=== PATIENT | female | born 1935 | race Caucasian/White ===

== ENCOUNTER 2017-08-20 22:18 | Inpatient (IN) | payer MEDICARE ==
[2017-08-20] MEDS ORDERED: Pantoprazole 40 MG Vial IVPUSH ONE (23:11)
[2017-08-20] MEDS ORDERED: Sodium Chloride 0.9% 10 ML Syringe FLUSH PRN ×2 (23:11→23:46)
[2017-08-20] MEDS ORDERED: Ondansetron 4 MG/2 ML SDV IVPUSH ONE (23:11)
[2017-08-20] MEDS ORDERED: Lactated Ringers 1,000 ML IV SCH (23:15)
--- NOTE | 2017-08-20 23:16 | EDM.PDOC ---
ED HPI GENERAL MEDICAL PROBLEM - General Chief Complaint: Gastrointestinal Problem Stated Complaint: HEARTBURN,NAUSEA Time Seen by Provider: 08/20/17 22:21 Source of Information: Reports: Patient, Family, RN Notes Reviewed History Limitations: Reports: No Limitations - History of Present Illness INITIAL COMMENTS - FREE TEXT/NARRATIVE: 82-year-old female presents emergency department day complaint of dark black emesis, she states it started about 2 hours prior she has had this one time in the past has had an EGD no she has gastroesophageal reflux disease as well as a hiatal hernia she does feel weak but has not passed out does feel nauseated and does describe some substernal chest pain as well epigastric Pain Score (Numeric/FACES): 5 - Related Data Allergies Allergy/AdvReac Type Severity Reaction Status Date / Time No Known Allergies Allergy Verified 08/20/17 22:44 Home Meds: Home Meds ALPRAZolam [Xanax] 1 mg PO BID PRN 09/09/14 [History] Acetaminophen [Tylenol Extra Strength] 500 mg PO Q6HR PRN 09/09/14 [History] Albuterol Sulfate [Proair Hfa] 2 puff INH Q4HR PRN 09/09/14 [History] Budesonide/Formoterol [Symbicort 160-4.5 Mcg Inhaler] 2 puff INH BID 09/09/14 [ History] Calcium Carbonate [Calcium] 500 mg PO DAILY 09/09/14 [History] Calcium Carbonate/Vitamin D3 [Ra Calcium 600-Vit D3 400 Tab] 1 tab PO DAILY 09/12 [History] Fish Oil/Borage/Flax/Om3,6,9#1 [[place] 3-6-9 Complex Softgel] 1 cap PO DAILY 09/12 [History] Hydrochlorothiazide 25 mg PO DAILY 09/09/14 [History] Lisinopril [Zestril] 40 mg PO DAILY 09/09/14 [History] Multivitamin with Minerals [Multiple Vitamin] 1 tab PO DAILY 09/09/14 [History] Omeprazole [Prilosec] 20 mg PO BIDAC 09/09/14 [History] Simvastatin [Zocor] 20 mg PO BEDTIME 09/09/14 [History] traZODone 25 mg PO BEDTIME PRN 09/09/14 [History] Past Medical History HEENT History: Reports: Impaired Vision Cardiovascular History: Reports: Hypertension Respiratory History: Reports: COPD Gastrointestinal History: Reports: GERD, Hiatal Hernia 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: Musculoskeletal History: Reports: Fracture, Other (See Below) Other Musculoskeletal History: Right arm fracture Psychiatric History: Reports: Anxiety - Infectious Disease History Infectious Disease History: Reports: Chicken Pox, Measles, Mumps, Rubella Social & Family History - Tobacco Use Smoking Status *Q: Current Every Day Smoker Years of Tobacco use: 65 Packs/Tins Daily: 0.2 Second Hand Smoke Exposure: No - Caffeine Use Caffeine Use: Reports: Coffee - Alcohol Use Days Per Week of Alcohol Use: 0 - Recreational Drug Use Recreational Drug Use: No ED ROS GENERAL - Review of Systems Review Of Systems: See Below Constitutional: Reports: No Symptoms HEENT: Reports: No Symptoms Respiratory: Reports: No Symptoms Cardiovascular: Reports: No Symptoms GI/Abdominal: Reports: Nausea, Vomiting (Black colored) Musculoskeletal: Reports: No Symptoms Skin: Reports: No Symptoms ED EXAM, GI/ABD - Physical Exam Exam: See Below Text/Narrative:: General: Female, not in any distress, alert and oriented x3 HEENT: head is atraumatic normocephalic, eyes pupils equal round reactive to light, sclera clear no conjunctivitis appreciated. Ears blocked by cerumen bilaterally canals are clear. Nose no septal deviation, nares are clear, no blood present. Mouth mucosa is moist and pink no erythema or exudate noted in soft palate, tongue is midline uvula is midline, dentures in place. Neck: Supple no thyromegaly no tracheal deviation. Nodes: Cervical nodes subclavicular nodes nontender no palpable lymphadenopathy noted. Lungs: clear to auscultation bilaterally with symmetrical respirations, no adventitious noise appreciated. CV: Regular rate and rhythm S1 and S2 appreciated no murmurs rubs or gallops noted. Abdomen: Soft, nontender, no palpable masses or organomegaly appreciated, no distention no guarding bowel sounds are present, Neuro: Cranial nerves II through XII grossly intact Skin: Warm and dry, intact Extremities: No lower extremity edema appreciated, Course - Vital Signs Last Recorded V/S: Last Vital Signs Temp 96.4 F 08/20/17 22:38 Pulse 115 H 08/20/17 22:38 Resp 16 08/20/17 22:38 BP 136/84 08/20/17 22:38 Pulse Ox 95 08/20/17 22:38 - Orders/Labs/Meds Orders: Active Orders 24 hr Category Date Time Status Patient Status [ADT] Routine ADT 08/21/17 00:13 Active Bedrest Bedside Commode [RC] ASDIRECTED Care 08/21/17 00:13 Active Cardiac Monitoring [RC] .As Directed Care 08/21/17 00:15 Active Fecal Occult Blood Collection [RC] ASDIRECTED Care 08/21/17 00:25 Active Height and Weight [RC] DAILY Care 08/21/17 00:13 Active Intake and Output [RC] QSHIFT Care 08/21/17 00:15 Active Notify Provider Consults [RC] ASDIRECTED Care 08/21/17 00:20 Active Oxygen Therapy [RC] PRN Care 08/21/17 00:13 Active Peripheral IV Care [RC] . DIRECTED Care 08/20/17 23:12 Active Peripheral IV Care [RC] . DIRECTED Care 08/20/17 23:47 Active Pulse Oximetry [RC] CONTINUOUS Care 08/21/17 00:15 Active RT Aerosol Therapy [RC] ASDIRECTED Care 08/21/17 00:20 Active VTE/DVT Education [RC] Per Unit Routine Care 08/21/17 00:13 Active Vital Signs [RC] Q4H Care 08/21/17 00:13 Active Consult to Physician [CONS] Routine Cons 08/21/17 00:13 Ordered OT Evaluation and Treatment [CONS] Routine Cons 08/21/17 00:13 Active PT Evaluation and Treatment [CONS] Routine Cons 08/21/17 00:13 Active Nothing per Oral Now Diet [DIET] Diet 08/21/17 Breakfast Active COMPREHENSIVE METABOLIC PN,CMP [CHEM] AM Lab 08/21/17 05:11 Ordered HELICOBACTER PYLORI AG, STOOL [REF] Routine Lab 08/21/17 00:25 Ordered HEMOGLOBIN/HEMATOCRIT,HH [HEME] Routine Lab 08/21/17 06:00 Ordered MAGNESIUM [CHEM] AM Lab 08/21/17 05:11 Ordered RED BLOOD CELLS LP [BBK] Stat Lab 08/20/17 23:53 Ordered TYPE AND SCREEN [BBK] Stat Lab 08/20/17 23:53 Ordered Acetaminophen [Tylenol] Med 08/21/17 00:13 Ordered 650 mg RECTAL Q4H PRN Albuterol [Proventil Neb Soln] Med 08/21/17 00:13 Ordered 2.5 mg NEB Q4H PRN Albuterol/Ipratropium [DuoNeb 3.0-0.5 MG/3 ML] Med 08/21/17 00:13 Ordered 3 ml NEB QID PRN Docusate Sodium/Sennosides [Senna Plus] Med 08/21/17 00:13 Ordered 1 tab PO BID PRN Lactated Ringers [Ringers, Lactated] 1,000 ml Med 08/20/17 23:15 Active IV ASDIRECTED Morphine Med 08/21/17 00:13 Ordered 2 mg IVPUSH Q2H PRN Nicotine [Habitrol] Med 08/21/17 09:00 Ordered 14 mg TRDERM DAILY Promethazine [Phenergan] 12.5 mg Med 08/21/17 00:13 Ordered Sodium Chloride 0.9% [Normal Saline] 50 ml IV Q6H Sodium Chloride 0.9% [Normal Saline] 100 ml Med 08/21/17 00:30 Ordered Pantoprazole [ProTONIX IV] 80 mg IV 10 mls/hr Sodium Chloride 0.9% [Saline Flush] Med 08/20/17 23:11 Active 10 ml FLUSH ASDIRECTED PRN Sodium Chloride 0.9% [Saline Flush] Med 08/20/17 23:46 Active 10 ml FLUSH ASDIRECTED PRN ED Antiemetic Medication Reflex [OM.PC] Click to Edit Oth 08/20/17 23:11 Ordered Peripheral IV Insertion Adult [OM.PC] Urgent Oth 08/20/17 23:11 Ordered Peripheral IV Insertion Adult [OM.PC] Urgent Oth 08/20/17 23:47 Ordered Resuscitation Status Routine Resus Stat 08/21/17 00:13 Ordered Medication Orders Acetaminophen (Tylenol) 650 mg RECTAL Q4H PRN PRN Reason: Mild pain/fever Albuterol (Proventil Neb Soln) 2.5 mg NEB Q4H PRN PRN Reason: Shortness Of Breath/wheezing Albuterol/Ipratropium (Duoneb 3.0-0.5 Mg/3 Ml) 3 ml NEB QID PRN PRN Reason: Shortness Of Breath/wheezing Lactated Ringer's (Ringers, Lactated) 1,000 mls @ 500 mls/hr IV ASDIRECTED PHUONG Last Admin: 08/20/17 23:51 Dose: 500 mls/hr Promethazine HCl 12.5 mg/ (Sodium Chloride) 50.5 mls @ 200 mls/hr IV Q6H PRN PRN Reason: Nausea/Vomiting Pantoprazole Sodium 80 mg/ (Sodium Chloride) 100 mls @ 10 mls/hr IV .Q10H PHUONG Morphine Sulfate (Morphine) 2 mg IVPUSH Q2H PRN PRN Reason: Pain (severe 7-10) Nicotine (Habitrol) 14 mg TRDERM DAILY PHUONG Senna/Docusate Sodium (Senna Plus) 1 tab PO BID PRN PRN Reason: Constipation Sodium Chloride (Saline Flush) 10 ml FLUSH ASDIRECTED PRN PRN Reason: Keep Vein Open Last Admin: 08/20/17 23:38 Dose: 10 ml Sodium Chloride (Saline Flush) 10 ml FLUSH ASDIRECTED PRN PRN Reason: Keep Vein Open Labs: Laboratory Tests 08/20/17 08/20/17 08/20/17 Range/Units 23:25 23:28 23:28 WBC 16.6 H (4.5-11.0) K/uL RBC 5.29 (3.30-5.50) M/uL Hgb 14.4 (12.0-15.0) g/dL Hct 43.4 (36.0-48.0) % MCV 82 (80-98) fL MCH 27 (27-31) pg MCHC 33 (32-36) % Plt Count 391 (150-400) K/uL Neut % (Auto) 87 H (36-66) % Lymph % (Auto) 5 L (24-44) % [place] % (Auto) 8 H (2-6) % Eos % (Auto) 0 L (2-4) % Baso % (Auto) 0 (0-1) % PT 10.5 (9.5-12.0) sec INR 0.98 (0.80-1.20) APTT 24.2 L (27.0-36.0) sec Sodium (140-148) mmol/L Potassium (3.6-5.2) mmol/L Chloride (100-108) mmol/L Carbon Dioxide (21-32) mmol/L Anion Gap (5.0-14.0) mmol/L BUN (7-18) mg/dL Creatinine (0.6-1.0) mg/dL Est Cr Clr Drug Dosing mL/min Estimated GFR (MDRD) (>60) Glucose (74-106) mg/dL Lactic Acid 1.2 (0.4-2.0) mmol/L Calcium (8.5-10.1) mg/dL Total Bilirubin (0.2-1.0) mg/dL AST (15-37) U/L ALT (12-78) U/L Alkaline Phosphatase (46-116) U/L Troponin I (0.000-0.056) ng/mL Total Protein (6.4-8.2) g/dL Albumin (3.4-5.0) g/dL Globulin (2.3-3.5) g/dL Albumin/Globulin Ratio (1.2-2.2) Lipase (73-393) U/L 08/20/ Range/Units 23:28 WBC (4.5-11.0) K/uL RBC (3.30-5.50) M/uL Hgb (12.0-15.0) g/dL Hct (36.0-48.0) % MCV (80-98) fL MCH (27-31) pg MCHC (32-36) % Plt Count (150-400) K/uL Neut % (Auto) (36-66) % Lymph % (Auto) (24-44) % [place] % (Auto) (2-6) % Eos % (Auto) (2-4) % Baso % (Auto) (0-1) % PT (9.5-12.0) sec INR (0.80-1.20) APTT (27.0-36.0) sec Sodium 139 L (140-148) mmol/L Potassium 3.7 (3.6-5.2) mmol/L Chloride 102 (100-108) mmol/L Carbon Dioxide 30 (21-32) mmol/L Anion Gap 10.7 (5.0-14.0) mmol/L BUN 35 H (7-18) mg/dL Creatinine 0.8 (0.6-1.0) mg/dL Est Cr Clr Drug Dosing 39.49 mL/min Estimated GFR (MDRD) > 60 (>60) Glucose 150 H (74-106) mg/dL Lactic Acid (0.4-2.0) mmol/L Calcium 11.1 H (8.5-10.1) mg/dL Total Bilirubin 0.3 (0.2-1.0) mg/dL AST 21 (15-37) U/L ALT 25 (12-78) U/L Alkaline Phosphatase 83 (46-116) U/L Troponin I < 0.017 (0.000-0.056) ng/mL Total Protein 7.1 (6.4-8.2) g/dL Albumin 3.8 (3.4-5.0) g/dL Globulin 3.3 (2.3-3.5) g/dL Albumin/Globulin Ratio 1.2 (1.2-2.2) Lipase 185 (73-393) U/L Meds: Medications Generic Name Dose Route Start Last Admin Trade Name Freq PRN Reason Stop Dose Admin Acetaminophen 650 mg 08/21/17 00:13 Tylenol RECTAL Q4H PRN Mild pain/fever Albuterol 2.5 mg 08/21/17 00:13 Proventil Neb Soln NEB Q4H PRN Shortness Of Breath/wheezing Albuterol/Ipratropium 3 ml 08/21/17 00:13 Duoneb 3.0-0.5 Mg/3 Ml NEB QID PRN Shortness Of Breath/wheezing Lactated Ringer's 1,000 mls @ 500 mls/hr 08/20/17 23:15 08/20/17 23:51 Ringers, Lactated IV 500 mls/hr ASDIRECTED PHUONG Administration Promethazine HCl 12.5 mg/ 50.5 mls @ 200 mls/hr 08/21/17 00:13 Sodium Chloride IV Q6H PRN Nausea/Vomiting Pantoprazole Sodium 80 mg/ 100 mls @ 10 mls/hr 08/21/17 00:30 Sodium Chloride IV .Q10H PHUONG Morphine Sulfate 2 mg 08/21/17 00:13 Morphine IVPUSH Q2H PRN Pain (severe 7-10) Nicotine 14 mg 08/21/17 09:00 Habitrol TRDERM DAILY PHUONG Senna/Docusate Sodium 1 tab 08/21/17 00:13 Senna Plus PO BID PRN Constipation Sodium Chloride 10 ml 08/20/17 23:11 08/20/17 23:38 Saline Flush FLUSH 10 ml ASDIRECTED PRN Administration Keep Vein Open Sodium Chloride 10 ml 08/20/17 23:46 Saline Flush FLUSH ASDIRECTED PRN Keep Vein Open Discontinued Medications Generic Name Dose Route Start Last Admin Trade Name Freq PRN Reason Stop Dose Admin Ondansetron HCl 4 mg 08/20/17 23:11 08/20/17 23:38 Zofran IVPUSH 08/20/17 23:12 4 mg ONETIME ONE Administration Pantoprazole Sodium 40 mg 08/20/17 23:11 08/20/17 23:38 Protonix Iv IVPUSH 08/20/17 23:12 40 mg ONETIME ONE Administration Departure - Departure Time of Disposition: 00:32 Disposition: Admitted As Inpatient 67 Condition: Good Clinical Impression: Hematemesis Qualifiers: Nausea presence: without nausea Qualified Code(s): K92.0 - Hematemesis - Discharge Information Referrals: Cris Jasmine PA [Primary Care Provider] - Forms: ED Department Discharge - My Orders Last 24 Hours: My Active Orders 08/20/17 23:11 Sodium Chloride 0.9% [Saline Flush] 10 ml FLUSH ASDIRECTED PRN ED Antiemetic Medication Reflex [OM.PC] Click to Edit Peripheral IV Insertion Adult [OM.PC] Urgent 08/20/17 23:12 Peripheral IV Care [RC] . DIRECTED 08/20/17 23:15 Lactated Ringers [Ringers, Lactated] 1,000 ml IV ASDIRECTED 08/20/17 23:46 Sodium Chloride 0.9% [Saline Flush] 10 ml FLUSH ASDIRECTED PRN 08/20/17 23:47 Peripheral IV Care [RC] . DIRECTED Peripheral IV Insertion Adult [OM.PC] Urgent 08/20/17 23:53 RED BLOOD CELLS LP [BBK] Stat TYPE AND SCREEN [BBK] Stat - Assessment/Plan Last 24 Hours: My Active Orders 08/20/17 23:11 Sodium Chloride 0.9% [Saline Flush] 10 ml FLUSH ASDIRECTED PRN ED Antiemetic Medication Reflex [OM.PC] Click to Edit Peripheral IV Insertion Adult [OM.PC] Urgent 08/20/17 23:12 Peripheral IV Care [RC] . DIRECTED 08/20/17 23:15 Lactated Ringers [Ringers, Lactated] 1,000 ml IV ASDIRECTED 08/20/17 23:46 Sodium Chloride 0.9% [Saline Flush] 10 ml FLUSH ASDIRECTED PRN 08/20/17 23:47 Peripheral IV Care [RC] . DIRECTED Peripheral IV Insertion Adult [OM.PC] Urgent 08/20/17 23:53 RED BLOOD CELLS LP [BBK] Stat TYPE AND SCREEN [BBK] Stat Plan: Assessment Acuity = acute Site and laterality = hemaemesis complicated patient with known history of chronic obstructive pulmonary disease and gastroesophageal reflux disease as well as hiatal hernia Etiology = unknown etiology Manifestations = none Location of injury = Home Lab values = WBC elevated 16.6 consistent leukocytosis, calcium elevated at 11.1 consistent hypercalcemia Plan called and discussed the case with Dr. Watkins, who agreed to admit the hospital Patient was in agreement with the plan all questions were answered. This note was dictated using [employer] voice recognition software please call with any questions.
--- NOTE | 2017-08-20 23:51 | PCM.HP ---
H&P History of Present Illness - General Date of Service: 08/20/17 Source of Information: Patient History Limitations: Reports: No Limitations - History of Present Illness Initial Comments - Free Text/Narative: 82-year-old female with past medical history of hypertension, hyperlipidemia, COPD, chronic smoker, past history of GI bleed, insomnia, GERD on omeprazole medication, previous history of paraesophageal hiatal hernia came to the ED with the complaining of bloody vomiting. Patient reports that first episode of wanting started around 7 PM and associated with upper abdominal pain. Patient reports that the pain is 2-3/10 in intensity, burning type, no radiation, which did not subside with omeprazole medication. Patient has significant past medical history of GERD and hiatal hernia and declined surgical management during the previous admission in 2013. Patient had last upper endoscopy was 2013. Patient denies any early colonic cancer, stomach cancer history in the family. Patient denies any blood in the stool, nausea, vomiting, disturbance in bowel or bladder habits. Patient last fecal occult blood test in 10/2016 was within normal limit. Patient denies any recent fever, sick contacts. Patient is a chronic smoker and has been on Symbicort and albuterol as needed for COPD. Denies any breathing difficulty, exertional chest pains. Patient blood pressures are reassuring. Patient received a omeprazole IV in the ED and hemoglobin is at baseline. Patient has been on aspirin 81 mg daily. Patient is a full code. Other review of systems are not significant epigastric Pain Score (Numeric/FACES): 5 Throat Pain Score (Numeric/FACES): 3 - Related Data Allergies/Adverse Reactions: Allergies Allergy/AdvReac Type Severity Reaction Status Date / Time No Known Allergies Allergy Verified 08/20/17 22:44 Home Medications: Home Meds ALPRAZolam [Xanax] 1 mg PO BID PRN 09/09/14 [History] Acetaminophen [Tylenol Extra Strength] 500 mg PO Q6HR PRN 09/09/14 [History] Albuterol Sulfate [Proair Hfa] 2 puff INH Q4HR PRN 09/09/14 [History] Budesonide/Formoterol [Symbicort 160-4.5 Mcg Inhaler] 2 puff INH BID 09/09/14 [ History] Calcium Carbonate [Calcium] 500 mg PO DAILY 09/09/14 [History] Calcium Carbonate/Vitamin D3 [Ra Calcium 600-Vit D3 400 Tab] 1 tab PO DAILY 09/12 [History] Fish Oil/Borage/Flax/Om3,6,9#1 [[place] 3-6-9 Complex Softgel] 1 cap PO DAILY 09/12 [History] Hydrochlorothiazide 25 mg PO DAILY 09/09/14 [History] Lisinopril [Zestril] 40 mg PO DAILY 09/09/14 [History] Multivitamin with Minerals [Multiple Vitamin] 1 tab PO DAILY 09/09/14 [History] Omeprazole [Prilosec] 20 mg PO BIDAC 09/09/14 [History] Simvastatin [Zocor] 20 mg PO BEDTIME 09/09/14 [History] traZODone 25 mg PO BEDTIME PRN 09/09/14 [History] Past Medical History HEENT History: Reports: Impaired Vision Cardiovascular History: Reports: Hypertension Respiratory History: Reports: COPD Gastrointestinal History: Reports: GERD, Hiatal Hernia 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: Musculoskeletal History: Reports: Fracture, Other (See Below) Other Musculoskeletal History: Right arm fracture Psychiatric History: Reports: Anxiety - Infectious Disease History Infectious Disease History: Reports: Chicken Pox, Measles, Mumps, Rubella Social & Family History - Tobacco Use Smoking Status *Q: Current Every Day Smoker Years of Tobacco use: 65 Packs/Tins Daily: 0.2 Second Hand Smoke Exposure: No - Caffeine Use Caffeine Use: Reports: Coffee - Alcohol Use Days Per Week of Alcohol Use: 0 - Recreational Drug Use Recreational Drug Use: No H&P Review of Systems - Review of Systems: Review Of Systems: See Below General: Denies: Fever, Chills, Malaise HEENT: Denies: Contact Lenses, Dysphasia, Ear Pain Pulmonary: Denies: Shortness of Breath, Wheezing, Pleuritic Chest Pain Cardiovascular: Denies: Chest Pain, Palpitations, Dyspnea on Exertion, Orthopnea , Edema, Lightheadedness, Syncope, Claudication Gastrointestinal: Reports: Abdominal Pain, Anorexia, Hematemesis. Denies: Black Stool, Bloody Stool, Constipation, Diarrhea, Decreased Appetite, Difficulty Swallowing, Distension, Flatus, Hematochezia, Melena, Nausea, Stool Incontinence, Vomiting Genitourinary: Denies: Dysuria, Frequency Musculoskeletal: Denies: Neck Pain, Shoulder Pain Skin: Denies: Cyanosis, Jaundice Psychiatric: Denies: Confusion, Depression, Mood Lability Neurological: Denies: Confusion, Dizziness Hematologic/Lymphatic: Denies: Anemia, Easy Bleeding Exam - Exam Exam: See Below - Vital Signs Vital Signs: Last Vital Signs Temp 35.8 C 08/20/17 22:38 Pulse 115 H 08/20/17 22:38 Resp 16 08/20/17 22:38 BP 136/84 08/20/17 22:38 Pulse Ox 95 08/20/17 22:38 Weight: 45.359 kg - Exam General: Alert, Oriented HEENT: PERRLA, Conjunctiva Clear Neck: Supple, Trachea Midline Lungs: Clear to Auscultation, Normal Respiratory Effort. No: Decreased Breath Sounds Cardiovascular: Regular Rate, Regular Rhythm, Normal S1, Normal S2. No: Irregular Rhythm GI/Abdominal Exam: Normal Bowel Sounds, Soft, Tender. No: Non-Tender, No Organomegaly, No Distention, No Mass, Distended, Guarding, Rigid, Rebound, Abnormal Bowel Sounds Extremities: Normal Inspection, Normal Range of Motion, Non-Tender, No Pedal Edema, Normal Capillary Refill, Pedal Edema Skin: Warm, Dry, Intact Neuro Extensive - Mental Status: Alert, Oriented x3, Normal Mood/Affect - Patient Data Lab Results Last 24 hrs: Laboratory Results - last 24 hr 08/20/17 08/20/17 Range/Units 23:28 23:28 WBC 16.6 H (4.5-11.0) K/uL RBC 5.29 (3.30-5.50) M/uL Hgb 14.4 (12.0-15.0) g/dL Hct 43.4 (36.0-48.0) % MCV 82 (80-98) fL MCH 27 (27-31) pg MCHC 33 (32-36) % Plt Count 391 (150-400) K/uL Neut % (Auto) 87 H (36-66) % Lymph % (Auto) 5 L (24-44) % [place] % (Auto) 8 H (2-6) % Eos % (Auto) 0 L (2-4) % Baso % (Auto) 0 (0-1) % PT 10.5 (9.5-12.0) sec INR 0.98 (0.80-1.20) APTT 24.2 L (27.0-36.0) sec Result Diagrams: 08/21/17 05:30 08/21/17 05:30 Vern Results Last 24 hrs: Microbiology 08/20/17 23:05 Gastric Occult Blood - Final Gastric Fluid *Q Meaningful Use (ADM) - VTE *Q VTE Criteria *Q: - Stroke *Q Stroke Criteria *Q: - AMI *Q AMI Criteria *Q: - Problem List (1) Paraesophageal hernia SNOMED Code(s): 4935119 ICD Code: K44.9 - DIAPHRAGMATIC HERNIA WITHOUT OBSTRUCTION OR GANGRENE Status: Acute Current Visit: Yes (2) Hyperlipemia SNOMED Code(s): 33205482 ICD Code: E78.5 - HYPERLIPIDEMIA, UNSPECIFIED Status: Acute Current Visit : Yes (3) Insomnia SNOMED Code(s): 189437483 ICD Code: G47.00 - INSOMNIA, UNSPECIFIED Status: Acute Current Visit: Yes (4) Hematemesis SNOMED Code(s): 3223388 ICD Code: K92.0 - HEMATEMESIS Status: Acute Current Visit: Yes Qualifiers: Nausea presence: without nausea Qualified Code(s): K92.0 - Hematemesis (5) COPD (chronic obstructive pulmonary disease) SNOMED Code(s): 65391457 ICD Code: J44.9 - CHRONIC OBSTRUCTIVE PULMONARY DISEASE, UNSPECIFIED Status : Chronic Current Visit: No (6) Esophageal reflux disease SNOMED Code(s): 868195109 ICD Code: K21.9 - GASTRO-ESOPHAGEAL REFLUX DISEASE WITHOUT ESOPHAGITIS Status: Chronic Current Visit: No (7) Essential hypertension SNOMED Code(s): 61590211 ICD Code: I10 - ESSENTIAL (PRIMARY) HYPERTENSION Status: Chronic Current Visit: No (8) Underweight SNOMED Code(s): 559263319 ICD Code: R63.6 - UNDERWEIGHT Status: Chronic Current Visit: No Problem List Initiated/Reviewed/Updated: Yes Orders Last 24hrs: Active Orders 24 hr Category Date Time Status Peripheral IV Care [RC] . DIRECTED Care 08/20/17 23:12 Active Peripheral IV Care [RC] . DIRECTED Care 08/20/17 23:47 Active COMPREHENSIVE METABOLIC PN,CMP [CHEM] Urgent Lab 08/20/17 23:28 Received LACTIC ACID [CHEM] Urgent Lab 08/20/17 23:11 Ordered LIPASE [CHEM] Urgent Lab 08/20/17 23:28 Received TROPONIN I [CHEM] Urgent Lab 08/20/17 23:28 Received Lactated Ringers [Ringers, Lactated] 1,000 ml Med 08/20/17 23:15 Active IV ASDIRECTED Sodium Chloride 0.9% [Saline Flush] Med 08/20/17 23:11 Active 10 ml FLUSH ASDIRECTED PRN Sodium Chloride 0.9% [Saline Flush] Med 08/20/17 23:46 Active 10 ml FLUSH ASDIRECTED PRN ED Antiemetic Medication Reflex [OM.PC] Click to Edit Oth 08/20/17 23:11 Ordered Peripheral IV Insertion Adult [OM.PC] Urgent Oth 08/20/17 23:11 Ordered Peripheral IV Insertion Adult [OM.PC] Urgent Oth 08/20/17 23:47 Ordered Medication Orders Lactated Ringer's (Ringers, Lactated) 1,000 mls @ 500 mls/hr IV ASDIRECTED PHUONG Last Admin: 08/20/17 23:51 Dose: 500 mls/hr Sodium Chloride (Saline Flush) 10 ml FLUSH ASDIRECTED PRN PRN Reason: Keep Vein Open Last Admin: 08/20/17 23:38 Dose: 10 ml Sodium Chloride (Saline Flush) 10 ml FLUSH ASDIRECTED PRN PRN Reason: Keep Vein Open Assessment/Plan Comment:: 82-year-old female with past medical history of recent visual anemia, GERD, hypertension, hyperlipidemia, COPD, chronic insomnia, chronic smoker came to the ED with the complaining of hematemesis and admitted into the hospital for further management (1) Paraesophageal hernia (4) Hematemesis (6) Esophageal reflux disease (8) Underweight Patient has charted brown hematemesis multiple episodes since evening occult blood test is positive hemoglobin is at baseline Patient has this history of para esophageal hernia Patient last her CT abdomen pelvis along with chest for unintentional weight loss in 04/2016 was at baseline with emphysematous changes. No malignancy findings are noted We'll start her on pantoprazole drip Will get type and crossmatch and packed RBC as needed Will get H. pylori stool test Will consult surgery for possible upper endoscopy and possible colonoscopy We'll follow recommendations CBC, CMP tomorrow Vital signs stable (7) Essential hypertension (2) Hyperlipemia (3) Insomnia We'll continue home medications (5) COPD (chronic obstructive pulmonary disease) Start her on duoneb 4 times daily scheduled and albuterol as needed At baseline Will continue home medications DVT prophylaxis Pass boots GI prophylaxis pantoprazole drip IV fluids normal saline Code status full code Diet nothing by mouth for now
[2017-08-21] MEDS ORDERED: Albuterol 0.083% 2.5 MG/3 ML Neb Soln NEB PRN (00:13)
[2017-08-21] MEDS ORDERED: Morphine 2 MG/ML Syringe IVPUSH PRN (00:13)
[2017-08-21] MEDS ORDERED: Promethazine 12.5 MG in Sodium Chloride 0.9% 50 ML IV PRN (00:13)
[2017-08-21] MEDS ORDERED: Albuterol/Ipratropium 3.0-0.5 MG/3 ML Neb Soln NEB PRN (00:13)
[2017-08-21] MEDS ORDERED: Acetaminophen 650 MG Supp RECTAL PRN (00:13)
[2017-08-21] MEDS ORDERED: Sodium Chloride 0.9% 100 ML with Pantoprazole 80 MG IV SCH ×2 (00:30)
[2017-08-21] MEDS ORDERED: Pantoprazole 80 MG in Sodium Chloride 0.9% 100 ML IV SCH ×2 (00:45→12:30)
[2017-08-21] MEDS: Sodium Chloride 0.9% 1,000 ML IV SCH ×2 (01:13→17:21)
[2017-08-21] MEDS ORDERED: fentaNYL 100 MCG/2 ML SDV ONE (07:52)
[2017-08-21] MEDS ORDERED: Propofol 200 MG/20 ML SDV ONE (07:52)
--- NOTE | 2017-08-21 08:01 | PCM.CONS ---
H&P History of Present Illness - General Date of Service: 08/21/17 Admit Problem/Dx: Admission Diagnosis/Problem Admission Diagnosis/Problem Hematemesis Source of Information: Patient History Limitations: Reports: No Limitations - History of Present Illness Initial Comments - Free Text/Narative: Heena states she has a Hiatal Hernia and the pain and heartburn will flare up occasionally. Last night she had a sudden onset of mid epigastric abdominal pain and coffee ground emesis. Duration of Symptoms: Reports: Day(s): (one) Location: Reports: Abdomen, Other (mid epigastric area) Quality: Reports: Dull, Pressure, Throbbing Severity: Mild Improves with: Reports: Eating, Medication Worsens with: Reports: None Context: Reports: Other (Heena is in no acute dress. ) Associated Symptoms: Reports: Loss of Appetite epigastric Pain Score (Numeric/FACES): 5 - Related Data Allergies/Adverse Reactions: Allergies Allergy/AdvReac Type Severity Reaction Status Date / Time No Known Allergies Allergy Verified 08/20/17 22:44 Home Medications: Home Meds ALPRAZolam [Xanax] 1 mg PO BID PRN 09/09/14 [History] Acetaminophen [Tylenol Extra Strength] 500 mg PO Q6HR PRN 09/09/14 [History] Albuterol Sulfate [Proair Hfa] 2 puff INH Q4HR PRN 09/09/14 [History] Budesonide/Formoterol [Symbicort 160-4.5 Mcg Inhaler] 2 puff INH BID 09/09/14 [ History] Calcium Carbonate [Calcium] 500 mg PO DAILY 09/09/14 [History] Calcium Carbonate/Vitamin D3 [Ra Calcium 600-Vit D3 400 Tab] 1 tab PO DAILY 09/12 [History] Fish Oil/Borage/Flax/Om3,6,9#1 [[place] 3-6-9 Complex Softgel] 1 cap PO DAILY 09/12 [History] Hydrochlorothiazide 25 mg PO DAILY 09/09/14 [History] Lisinopril [Zestril] 40 mg PO DAILY 09/09/14 [History] Multivitamin with Minerals [Multiple Vitamin] 1 tab PO DAILY 09/09/14 [History] Omeprazole [Prilosec] 20 mg PO BIDAC 09/09/14 [History] Simvastatin [Zocor] 20 mg PO BEDTIME 09/09/14 [History] traZODone 25 mg PO BEDTIME PRN 09/09/14 [History] Past Medical History HEENT History: Reports: Impaired Vision Cardiovascular History: Reports: Hypertension Respiratory History: Reports: COPD Gastrointestinal History: Reports: GERD, Hiatal Hernia 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: Musculoskeletal History: Reports: Fracture, Other (See Below) Other Musculoskeletal History: Right arm fracture Psychiatric History: Reports: Anxiety - Infectious Disease History Infectious Disease History: Reports: Chicken Pox, Measles, Mumps, Rubella Social & Family History - Tobacco Use Smoking Status *Q: Current Every Day Smoker Years of Tobacco use: 65 Packs/Tins Daily: 0.2 Second Hand Smoke Exposure: No - Caffeine Use Caffeine Use: Reports: Coffee - Alcohol Use Days Per Week of Alcohol Use: 0 - Recreational Drug Use Recreational Drug Use: No H&P Review of Systems - Review of Systems: Review Of Systems: See Below Free Text/Narrative: Heena is a pleasant 82 year old female who is no acute distress. She is alert and oriented General: Reports: Weakness HEENT: Reports: No Symptoms Pulmonary: Reports: No Symptoms Cardiovascular: Reports: No Symptoms Gastrointestinal: Reports: Abdominal Pain, Decreased Appetite, Hematemesis Genitourinary: Reports: No Symptoms Musculoskeletal: Reports: Muscle Stiffness Skin: Reports: No Symptoms Psychiatric: Reports: No Symptoms Neurological: Reports: No Symptoms Hematologic/Lymphatic: Reports: No Symptoms Immunologic: Reports: No Symptoms Exam - Exam Exam: See Below - Vital Signs Vital Signs: Last Vital Signs Temp 99.3 F 08/21/17 07:51 Pulse 81 08/21/17 07:51 Resp 16 08/21/17 07:51 BP 110/45 L 08/21/17 07:51 Pulse Ox 96 08/21/17 07:51 Weight: 100 lb - Exam Quality Assessment: DVT Prophylaxis General: Alert, Oriented, Cooperative, Mild Distress HEENT: PERRLA Neck: Supple Lungs: Clear to Auscultation, Normal Respiratory Effort Cardiovascular: Regular Rate, Regular Rhythm GI/Abdominal Exam: Tender (in mid epigastric area) (Female) Exam: Deferred Rectal (Female) Exam: Deferred Back Exam: Normal Inspection, Full Range of Motion Extremities: Normal Inspection, No Pedal Edema Skin: Warm, Dry, Intact Neurological: Cranial Nerves Intact, Reflexes Equal Bilateral Neuro Extensive - Mental Status: Alert, Oriented x3, Normal Mood/Affect, Normal Cognition Neuro Extensive - Motor, Sensory, Reflexes: CN II-XII Intact Psychiatric: Alert, Normal Affect, Normal Mood - Patient Data Lab Results Last 24 hrs: Laboratory Results - last 24 hr 08/21/17 08/21/17 Range/Units 05:30 05:30 Hgb 11.3 L D (12.0-15.0) g/dL Hct 35.4 L (36.0-48.0) % Sodium 141 (140-148) mmol/L Potassium 4.1 (3.6-5.2) mmol/L Chloride 107 (100-108) mmol/L Carbon Dioxide 29 (21-32) mmol/L Anion Gap 5.2 (5.0-14.0) mmol/L BUN 40 H (7-18) mg/dL Creatinine 0.8 (0.6-1.0) mg/dL Est Cr Clr Drug Dosing 39.49 mL/min Estimated GFR (MDRD) > 60 (>60) Glucose 109 H (74-106) mg/dL Calcium 8.8 D (8.5-10.1) mg/dL Magnesium 1.6 L (1.8-2.4) mg/dL Total Bilirubin 0.3 (0.2-1.0) mg/dL AST 16 (15-37) U/L ALT 18 (12-78) U/L Alkaline Phosphatase 61 (46-116) U/L Total Protein 5.5 L (6.4-8.2) g/dL Albumin 2.8 L (3.4-5.0) g/dL Globulin 2.7 (2.3-3.5) g/dL Albumin/Globulin Ratio 1.0 L (1.2-2.2) Result Diagrams: 08/21/17 05:30 08/21/17 05:30 Consult PN Assessment/Plan Procedures: Procedures CONTRST X-RAY UPPR GI TRACT (09/12/14) CT ABD & PELV W/CONTRAST (05/17/16) CT THORAX W/DYE (05/17/16) EGD BIOPSY SINGLE/MULTIPLE (09/10/14) TTE W/DOPPLER COMPLETE (11/23/15) (1) Hematemesis SNOMED Code(s): 9552217 Code(s): K92.0 - HEMATEMESIS Current Visit: Yes Qualifiers: Nausea presence: without nausea Qualified Code(s): K92.0 - Hematemesis (2) COPD (chronic obstructive pulmonary disease) SNOMED Code(s): 57449076 Code(s): J44.9 - CHRONIC OBSTRUCTIVE PULMONARY DISEASE, UNSPECIFIED Current Visit: No (3) Aortic calcification SNOMED Code(s): 350509301 Code(s): I70.0 - ATHEROSCLEROSIS OF AORTA Current Visit: No (4) Essential hypertension SNOMED Code(s): 46788329 Code(s): I10 - ESSENTIAL (PRIMARY) HYPERTENSION Current Visit: No (5) Underweight SNOMED Code(s): 261456179 Code(s): R63.6 - UNDERWEIGHT Current Visit: No (6) Esophageal reflux disease SNOMED Code(s): 355804471 Code(s): K21.9 - GASTRO-ESOPHAGEAL REFLUX DISEASE WITHOUT ESOPHAGITIS Current Visit: No Problem List Initiated/Reviewed/Updated: Yes My Orders Last 24 Hours: My Active Orders 08/21/17 07:10 Verify Patient Consent Obtain [RC] ASDIRECTED Plan: Plan: EGD with possible biopsies - IV Sedation - Case to follow - 08/21/17 No Wesleyinul Orders to be written post EDG Jeannette Fields 08/21/17
[2017-08-21] MEDS ORDERED: Lactated Ringers 1,000 ML ONE (10:03)
[2017-08-21] MEDS: Nicotine 14 MG/24 Hr Patch TRDERM SCH (10:16)
--- NOTE | 2017-08-21 11:28 | PCM.PN ---
- General Info Date of Service: 08/21/17 Functional Status: Reports: Pain Controlled - Review of Systems General: Denies: Fever Gastrointestinal: Reports: Other (no hematemesis ). Denies: Melena Systems Review Comment:: No acute events overnight. No recurrence of her hematemesis. EGD this morning was difficult because of a very large hiatal hernia. Hemoglobin has dropped some since admission but she has not had melena or hematochezia. No significant pain this morning. No fevers. - Patient Data Vitals - Most Recent: Last Vital Signs Temp 36.8 C 08/21/17 11:26 Pulse 72 08/21/17 11:26 Resp 16 08/21/17 10:55 BP 123/58 L 08/21/17 11:26 Pulse Ox 94 L 08/21/17 10:55 Weight - Most Recent: 45.359 kg I&O - Last 24 Hours: Intake & Output 08/20/17 08/21/17 08/21/17 22:59 06:59 14:59 Intake Total 486 Output Total 320 100 Balance 166 -100 Lab Results Last 24 Hours: Laboratory Results - last 24 hr 08/21/17 08/21/17 Range/Units 05:30 05:30 Hgb 11.3 L D (12.0-15.0) g/dL Hct 35.4 L (36.0-48.0) % Sodium 141 (140-148) mmol/L Potassium 4.1 (3.6-5.2) mmol/L Chloride 107 (100-108) mmol/L Carbon Dioxide 29 (21-32) mmol/L Anion Gap 5.2 (5.0-14.0) mmol/L BUN 40 H (7-18) mg/dL Creatinine 0.8 (0.6-1.0) mg/dL Est Cr Clr Drug Dosing 39.49 mL/min Estimated GFR (MDRD) > 60 (>60) Glucose 109 H (74-106) mg/dL Calcium 8.8 D (8.5-10.1) mg/dL Magnesium 1.6 L (1.8-2.4) mg/dL Total Bilirubin 0.3 (0.2-1.0) mg/dL AST 16 (15-37) U/L ALT 18 (12-78) U/L Alkaline Phosphatase 61 (46-116) U/L Total Protein 5.5 L (6.4-8.2) g/dL Albumin 2.8 L (3.4-5.0) g/dL Globulin 2.7 (2.3-3.5) g/dL Albumin/Globulin Ratio 1.0 L (1.2-2.2) Med Orders - Current: Current Medications Acetaminophen (Tylenol) 650 mg RECTAL Q4H PRN PRN Reason: Mild pain/fever Albuterol (Proventil Neb Soln) 2.5 mg NEB Q4H PRN PRN Reason: Shortness Of Breath/wheezing Albuterol/Ipratropium (Duoneb 3.0-0.5 Mg/3 Ml) 3 ml NEB QID PRN PRN Reason: Shortness Of Breath/wheezing Promethazine HCl 12.5 mg/ (Sodium Chloride) 50.5 mls @ 200 mls/hr IV Q6H PRN PRN Reason: Nausea/Vomiting Last Admin: 08/21/17 01:32 Dose: 200 mls/hr Sodium Chloride (Normal Saline) 1,000 mls @ 100 mls/hr IV ASDIRECTED [facility] Last Admin: 08/21/17 01:13 Dose: 100 mls/hr Morphine Sulfate (Morphine) 2 mg IVPUSH Q2H PRN PRN Reason: Pain (severe 7-10) Last Admin: 08/21/17 03:04 Dose: 2 mg Nicotine (Habitrol) 14 mg TRDERM DAILY [facility] Last Admin: 08/21/17 10:16 Dose: Not Given Senna/Docusate Sodium (Senna Plus) 1 tab PO BID PRN PRN Reason: Constipation Sodium Chloride (Saline Flush) 10 ml FLUSH ASDIRECTED PRN PRN Reason: Keep Vein Open Last Admin: 08/20/17 23:38 Dose: 10 ml Discontinued Medications Fentanyl (Sublimaze) Confirm Administered Dose 100 mcg .ROUTE .STK-MED ONE Stop: 08/21/17 07:53 Lactated Ringer's (Ringers, Lactated) 1,000 mls @ 500 mls/hr IV ASDIRECTED [facility] Last Admin: 08/20/17 23:51 Dose: 500 mls/hr Pantoprazole Sodium 80 mg/ (Sodium Chloride) 100 mls @ 10 mls/hr IV .Q10H [facility] Last Admin: 08/21/17 04:00 Dose: Not Given Pantoprazole Sodium 80 mg/ (Sodium Chloride) 100 mls @ 10 mls/hr IV ASDIRECTED [facility] Stop: 08/21/17 11:00 Last Admin: 08/21/17 02:59 Dose: 10 mls/hr Pantoprazole Sodium 80 mg/ (Sodium Chloride) 100 mls @ 10 mls/hr IV Q10H [facility] Lactated Ringer's (Ringers, Lactated) Confirm Administered Dose 1,000 mls @ as directed .ROUTE .STK-MED ONE Stop: 08/21/17 10:04 Ondansetron HCl (Zofran) 4 mg IVPUSH ONETIME ONE Stop: 08/20/17 23:12 Last Admin: 08/20/17 23:38 Dose: 4 mg Pantoprazole Sodium (Protonix Iv) 40 mg IVPUSH ONETIME ONE Stop: 08/20/17 23:12 Last Admin: 08/20/17 23:38 Dose: 40 mg Propofol (Diprivan 20 Ml) Confirm Administered Dose 200 mg .ROUTE .STK-MED ONE Stop: 08/21/17 07:53 - Exam Quality Assessment: No: Supplemental Oxygen General: Alert, Oriented, Cooperative, No Acute Distress Neck: Supple Lungs: Normal Respiratory Effort, Wheezing (rare end exp wheezing) Cardiovascular: Regular Rate, Regular Rhythm GI/Abdominal Exam: Soft, No Distention Extremities: No Pedal Edema Skin: Warm, Dry Psy/Mental Status: Alert, Normal Affect - Problem List Review Problem List Initiated/Reviewed/Updated: Yes - My Orders Last 24 Hours: My Active Orders 08/21/17 10:56 Up With Assistance [RC] ASDIRECTED 08/21/17 11:30 Pantoprazole [ProTONIX IV] 40 mg IVPUSH Q12H 08/21/17 17:00 HGB [HEMOGLOBIN] [HEME] Routine 08/22/17 05:00 BASIC METABOLIC PANEL,BMP [CHEM] Timed CBC W/O DIFF,HEMOGRAM [HEME] Timed (1) - Plan Plan:: ASSESSMENT AND PLAN EPIGASTRIC PAIN WITH HEMATEMESIS - EGD revealed large hiatal hernia which was known but no obvious pathology noted though the procedure was difficult because of the hernia. Upper GI study planned for tomorrow. Patient has been hemodynamically stable and has not had recurrence of hematemesis. -Repeat hemoglobin this afternoon -Hemoglobin again in the morning -Twice daily proton pump inhibitor -Upper GI study planned for tomorrow morning COPD - stable with no evidence for exacerbation. -Continue home medications DVT prophylaxis - mechanical GI prophylaxis - PPI Diet - full liquids Disposition - anticipate discharge to home after the hospital stay Epifanio Gutiérrez M.D.
[2017-08-21] MEDS: Pantoprazole 40 MG Vial IVPUSH SCH ×2 (12:06→22:33)
[2017-08-21] MEDS ORDERED: Albuterol 8 GM Inhaler INH PRN (15:22)
[2017-08-21] MEDS: Magnesium Sulfate/Water 2 GM in Premix Bag 1 BAG IV SCH ×2 (17:12→22:33)
[2017-08-21] MEDS: ALPRAZolam 0.5 MG Tab PO SCH (20:22)
[2017-08-21] MEDS: Formoterol/Mometasone 200-5 MCG 8.8 GM Inhaler IH SCH (20:24)
[2017-08-21] MEDS ORDERED: Non-Formulary Medication 1 Each (Budesonide/Formoterol [Symbicort 160-4.5 Mcg] 2 PUFF) INH SCH (21:00)
[2017-08-22] MEDS ORDERED: Iohexol 647 MG/ML 50 ML SDV PO STA (01:38)
[2017-08-22] MEDS: Sodium Chloride 0.9% 1,000 ML IV SCH (03:24)
[2017-08-22] MEDS ORDERED: Acetaminophen 325 MG Tab PO PRN (04:43)
[2017-08-22] MEDS: Formoterol/Mometasone 200-5 MCG 8.8 GM Inhaler IH SCH (07:24)
[2017-08-22] MEDS: ALPRAZolam 0.5 MG Tab PO SCH (08:24)
[2017-08-22] MEDS: Nicotine 14 MG/24 Hr Patch TRDERM SCH (08:27)
--- NOTE | 2017-08-22 08:54 | CR ---
UGI wo KUB HISTORY: eval gastric empying in pt with massive hiatal her FINDINGS: After administration of oral contrast, upright views were obtained. Large esophageal hiatal hernia. At 15 minutes and 30 minutes, the majority of the contrast remains within the stomach. At 3 hours, there remains persistent contrast within the stomach. At 5 hours, contrast is emptied from the stomach, with the majority of the contrast within the colon. Large amount of stool within the colon. Exam otherwise unremarkable. IMPRESSION: Persistent contrast within the hiatal hernia at 3 hours. At 5 hours, the majority of the contrast is within the colon.
--- NOTE | 2017-08-22 09:18 | DISCH ---
ADMISSION DIAGNOSES: Hematemesis, hyperlipidemia, insomnia, chronic obstructive pulmonary disease, aortic calcification, essential hypertension, malnutrition, and esophageal reflux disease. DISCHARGE DIAGNOSIS: Gastroscopy 08/20/2017. PREOPERATIVE DIAGNOSIS: Heartburn, nausea. POSTOPERATIVE DIAGNOSIS: Large diaphragmatic hernia. After preoperative evaluation, discussion of possible risks and possible complications, Heena wished to proceed with gastroscopy. HOSPITAL COURSE: Heena was admitted to the hospital on 08/20/2017 for dark black emesis that started 2 hours prior to coming into the emergency room. She had a known gastroesophageal reflux disease with hiatal hernia, but she has not felt this sick before. She was admitted to the hospital and an EGD was done on 08/21/2017. Her EGD did reveal large diaphragmatic hernia. Dr. Sergo Mueller did discuss with her to have a laparoscopic surgery for repair of the large diaphragmatic hernia. Heena did wish to proceed with surgery. She states she is not able to eat very much and her weight is down to 100 pounds and she has a lot of discomfort. REVIEW OF SYSTEMS: HEENT: Negative. NECK: Negative. CHEST: She does have some chest pain after she eats because of the hernia. Denies any fast or irregular heartbeat. LUNGS: No shortness of breath. ABDOMEN: As above. : Negative. EXTREMITIES: No joint pain or swelling. SKIN: Without rash. NEURO: Denies any headache, dizziness, or loss of coordination. PSYCHIATRIC: Denies any depression, anxiety, or insomnia. Remainder of review of systems negative for any pertinent positives and negatives. OBJECTIVE: GENERAL: Heena Edwards is a pleasant 82-year-old female. She is alert and orientated. VITAL SIGNS: Height is 5 feet 2.99 inches, weight is 100 pounds, BMI is 17.7. TPR 97, 82, 18. Blood pressure 113/57, O2 is 95% on room air. HEENT: Negative. NECK: Supple. HEART: Regular rate and rhythm. LUNGS: Clear. ABDOMEN: Soft, minimally tender in the midepigastric area. : Deferred. EXTREMITIES: Without peripheral edema. Full range of motion. NEURO: Intact. PSYCHIATRIC: Mood and affect appropriate. DISPOSITION: Discharged to home. CONDITION: Stable. FOLLOWUP: To follow up on , 06/24/2017, for a laparoscopic possible open repair of large diaphragmatic hernia under general anesthesia, Sergo Mueller MD. She will be typed and screened and cross-matched for 2 units of packed red blood cells on the morning of surgery. She is to be n.p.o. after midnight. HOME MEDICATIONS: She is to resume her home medication of Xanax 1 mg b.i.d. p.r.n. anxiety, Tylenol 500 mg oral q.6 hours, ProAir inhaler 2 puffs every 4 hours, Symbicort 2 puffs inhaled twice a day, calcium with vitamin D one tablet daily, calcium carbonate 500 mg daily, fish oil 1 capsule daily, hydrochlorothiazide 25 mg oral daily, lisinopril 40 mg oral daily, multivitamin 1 tablet daily, Prilosec 20 mg oral twice daily, Zocor 20 mg oral at bedtime, and trazodone 20 mg at bedtime. DISCHARGE INSTRUCTIONS: Diet after discharge, GI, soft, low-residue diet. Drink 8-10 glasses of water. Activity as tolerated. May drive today. May shower. Notify provider if any increased pain, nausea, or vomiting.
--- NOTE | 2017-08-24 13:26 | OR ---
DATE OF PROCEDURE: 08/21/2017 PREOPERATIVE DIAGNOSIS: Hematemesis with a history of large paraesophageal diaphragmatic hernia. POSTOPERATIVE DIAGNOSES: 1. Gastroesophageal reflux disease associated with ulceration at esophagogastric junction. 2. 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 OPERATIVE PROCEDURE: Upper GI endoscopy with biopsies of gastric antrum for CLOtest. ANESTHESIA: IV sedation. INDICATION FOR PROCEDURE: This is an 82-year-old with a known history of very large diaphragmatic hernia presenting with some hematemesis. Plan is to proceed with upper GI endoscopy with biopsies as indicated. Potential risks including bleeding and perforation were discussed, and the patient wishes to proceed. DETAILS OF PROCEDURE: The patient was taken to the operating room and placed in a left lateral decubitus position. IV sedation was administered, after which the upper GI endoscope was passed orally through the length of the esophagus and into the stomach. The patient was noted to have a very large hiatal hernia. Upon passing the scope into the distal aspect of the stomach and retroflexing the scope, there were noted to be 2 upper components of hiatal hernia confirming that it was the large paraesophageal component to the hiatal hernia. There was marked esophagitis with some old coffee-ground type material coating on the distal esophagus over some ulcerated areas. These were likely the site of her recent bleeding resulting in hematemesis. The scope could be passed into the antrum, but never out of the antrum and into the duodenum. This appeared to be fairly tightly angulated due to the large size of the paraesophageal hernia. The scope was then withdrawn. Biopsies were obtained from the antrum and sent for CLOtest for H. pylori. No bleeding at the biopsy sites was seen. In the past, the patient has been resistant to have surgical correction of this problem. She is however losing fair bit of weight. We will obtain an upper GI x-ray tomorrow morning to try to establish how well the patient's stomach is emptying. If this confirms that she is having poor emptying, we will likely need to discuss surgical correction of this paraesophageal hernia somewhat further. Sergo Mueller MD /[id number]
== END 2017-08-22 11:10 | disposition home or self-care (01) | DRG 392 ==
LOC: JP.ED 22:18 → JP.MS 08-21 00:13
PROVIDERS: ADMIT Family Medicine; ATTEND Internal Medicine
PROC: 0DB68ZX Excision of Stomach, Via Natural or Artificial Opening Endoscopic, Diagnostic (ICD-10-PCS; principal; 2017-08-21)
DX: K21.0 Gastro-esophageal reflux disease with esophagitis (principal); K92.0 Hematemesis; E46 Unspecified protein-calorie malnutrition; Z68.1 Body mass index [BMI] 19.9 or less, adult; R63.6 Underweight; K21.9 Gastro-esophageal reflux disease without esophagitis; K44.9 Diaphragmatic hernia without obstruction or gangrene; R12 Heartburn; R11.0 Nausea; F17.210 Nicotine dependence, cigarettes, uncomplicated; J44.9 Chronic obstructive pulmonary disease, unspecified; I10 Essential (primary) hypertension; G47.00 Insomnia, unspecified; E78.5 Hyperlipidemia, unspecified; F41.9 Anxiety disorder, unspecified; H54.7 Unspecified visual loss
CPT/HCPCS: 36415; 80053; 82271; 83605; 83690; 84484; 85025; 85610; 85730; 96374; 96375; 99285; C9113; J2405; J7050; J7120; 74240; 74240-26; 80048; 83735; 85014; 85018; 85027; 86850; 86900; 86901; 86920; 86922; 87081; 94640-76; A9270-GY; J2270; J2550; J2704; J3010; J3475; J7030; J7040; Q9967

== ENCOUNTER 2017-08-24 07:32 | Inpatient (IN) | payer MEDICARE ==
[2017-08-24] MEDS ORDERED: Acetaminophen 500 MG Tab PO ONE (08:00)
[2017-08-24] MEDS ORDERED: Dextrose 5%-Lactated Ringers 1,000 ML IV SCH (09:00)
[2017-08-24] MEDS ORDERED: cefOXitin 2 GM in Sodium Chloride 0.9% 50 ML IV ONE (09:30)
[2017-08-24] MEDS ORDERED: Succinylcholine 200 MG/10 ML MDV ONE (09:48)
[2017-08-24] MEDS ORDERED: Neostigmine Methylsulfate 1 MG/ML 5 ML Syringe ONE (09:48)
[2017-08-24] MEDS ORDERED: Propofol 200 MG/20 ML SDV ONE (09:48)
[2017-08-24] MEDS ORDERED: Glycopyrrolate 0.2 MG/ML 5 ML MDV ONE (09:48)
[2017-08-24] MEDS ORDERED: Ondansetron 4 MG/2 ML SDV ONE ×2 (09:48→10:17)
[2017-08-24] MEDS ORDERED: Dexamethasone 4 MG/ML SDV ONE (09:48)
[2017-08-24] MEDS ORDERED: Rocuronium 50 MG/5 ML Vial ONE (09:48)
[2017-08-24] MEDS: Albuterol/Ipratropium 3.0-0.5 MG/3 ML Neb Soln NEB ONE ×2 (09:49→14:47)
[2017-08-24] MEDS ORDERED: cefOXitin 2 GM Vial ONE (10:25)
[2017-08-24] MEDS ORDERED: Meropenem 500 MG SDV ONE (11:46)
[2017-08-24] MEDS ORDERED: Lactated Ringers 1,000 ML ONE (12:29)
[2017-08-24] MEDS ORDERED: Naloxone 0.4 MG/ML SDV IVPUSH PRN (13:04)
[2017-08-24] MEDS ORDERED: HYDROmorphone/Normal Saline 15 MG/30 ML PCA IV PRN (13:04)
[2017-08-24] MEDS ORDERED: Naloxone 0.4 MG/ML SDV IV PRN (13:07)
[2017-08-24] MEDS ORDERED: Sugammadex Sodium 200 MG/2 ML VIAL ONE (13:12)
[2017-08-24] MEDS: hydrOXYzine HCl 100 MG/2 ML SDV IM ONE ×2 (13:55→15:11)
[2017-08-24] MEDS ORDERED: Albuterol/Ipratropium 3.0-0.5 MG/3 ML Neb Soln ONE (14:44)
[2017-08-24] MEDS ORDERED: Albuterol/Ipratropium 3.0-0.5 MG/3 ML Neb Soln INH PRN (14:58)
[2017-08-24] MEDS ORDERED: Ondansetron 4 MG/2 ML SDV IVPUSH PRN (15:01)
[2017-08-24] MEDS ORDERED: traZODone 50 MG Tab PO PRN (15:02)
[2017-08-24] MEDS: Albuterol/Ipratropium 3.0-0.5 MG/3 ML Neb Soln INH SCH ×3 (15:14→21:01)
[2017-08-24] MEDS: Pantoprazole 40 MG Vial IV SCH (15:54)
[2017-08-24] MEDS: Metoclopramide 10 MG/2 ML SDV IVPUSH SCH ×2 (15:54→21:04)
[2017-08-24] MEDS: ceFAZolin 1 GM in Premix Bag 1 BAG IV SCH (15:59)
[2017-08-24] MEDS: Formoterol/Mometasone 200-5 MCG 8.8 GM Inhaler IH SCH (21:01)
[2017-08-24] MEDS: ALPRAZolam 0.5 MG Tab PO PRN (21:28)
[2017-08-24] MEDS: Dextrose 5%-Lactated Ringers 1,000 ML IV SCH (22:56)
[2017-08-25] MEDS: ceFAZolin 1 GM in Premix Bag 1 BAG IV SCH ×2 (00:10→08:47)
[2017-08-25] MEDS: Metoclopramide 10 MG/2 ML SDV IVPUSH SCH ×4 (04:07→21:13)
[2017-08-25] MEDS: Albuterol/Ipratropium 3.0-0.5 MG/3 ML Neb Soln INH SCH ×3 (07:06→20:37)
[2017-08-25] MEDS: Formoterol/Mometasone 200-5 MCG 8.8 GM Inhaler IH SCH ×2 (07:06→20:37)
[2017-08-25] MEDS: Dextrose 5%-Lactated Ringers 1,000 ML IV SCH ×2 (07:22→16:09)
[2017-08-25] MEDS ORDERED: Acetaminophen 160 MG Tab,Disintegrating PO PRN (07:49)
[2017-08-25] MEDS ORDERED: ALPRAZolam 0.5 MG Tab PO PRN (07:50)
[2017-08-25] MEDS ORDERED: traZODone 50 MG Tab PO PRN (07:50)
[2017-08-25] MEDS: Aspirin 81 MG Tab.EC PO SCH (08:43)
[2017-08-25] MEDS: Lisinopril 20 MG Tab PO SCH (08:43)
[2017-08-25] MEDS: Hydrochlorothiazide 25 MG Tab PO SCH (08:44)
[2017-08-25] MEDS ORDERED: Non-Formulary Medication 1 Each (Lisinopril [Zestril] 40 MG) PO SCH (09:00)
[2017-08-25] MEDS ORDERED: Non-Formulary Medication 1 Each (Budesonide/Formoterol [Symbicort 160-4.5 Mcg] 2 PUFF) INH SCH (09:00)
--- NOTE | 2017-08-25 09:28 | PN ---
DATE OF SERVICE: 08/25/2017 SUBJECTIVE: Heena is postop day 1. She states her pain is controlled. She has been up ambulating. Vital signs have been stable. REVIEW OF SYSTEMS: Remainder of review of systems negative for any pertinent positives and negatives. OBJECTIVE: GENERAL: Heena is a pleasant 82-year-old female. VITAL SIGNS: TPR is 98.6, 76, 14, blood pressure 108/93. HEENT: Negative. NECK: Supple. HEART: Regular rate and rhythm. LUNGS: Clear. ABDOMEN: Dressings dry and intact. She gastrostomy tube in and put out 150 mL. EXTREMITIES: Without peripheral edema and SCDs are on. ASSESSMENT: Laparoscopic repair of large diaphragmatic hernia. PLAN: 1. Decrease IV to 100 mL per hour. 2. Discontinue [employer] and continuous pulse ox. 3. Hycet 15 mL q.4 hours p.r.n. pain. 4. Tylenol RediTabs 640 mg q.4 hours p.r.n. lesser pain. 5. Full liquid diet. 6. Good pulmonary toilet encouraged. 7. We will evaluate p.r.n. or in a.m. Jeannette Sofia PA-C /[id number]
[2017-08-25] MEDS: ALPRAZolam 0.5 MG Tab PO PRN ×2 (10:37→21:22)
[2017-08-25] MEDS: Pantoprazole 40 MG Vial IV SCH (15:33)
[2017-08-25] MEDS: Simvastatin 20 MG Tab PO SCH (20:36)
[2017-08-25] MEDS: Acetaminophen/HYDROcodone 108-2.5 MG/5 ML Soln 15 ML UD Cup PO PRN (20:37)
[2017-08-26] MEDS: Dextrose 5%-Lactated Ringers 1,000 ML IV SCH (01:57)
[2017-08-26] MEDS: Metoclopramide 10 MG/2 ML SDV IVPUSH SCH ×3 (03:41→15:59)
[2017-08-26] MEDS: Acetaminophen/HYDROcodone 108-2.5 MG/5 ML Soln 15 ML UD Cup PO PRN ×3 (04:59→20:31)
[2017-08-26] MEDS: Albuterol/Ipratropium 3.0-0.5 MG/3 ML Neb Soln INH SCH ×3 (07:13→20:31)
[2017-08-26] MEDS: Formoterol/Mometasone 200-5 MCG 8.8 GM Inhaler IH SCH ×2 (07:13→20:22)
--- NOTE | 2017-08-26 08:42 | PN ---
DATE OF SERVICE: 08/26/2017 SUBJECTIVE: Heena developed some abdominal cramping and pain across the top part of her abdomen. Her gastrostomy tube was unclamped and put to bedside drainage, and she did feel better. Pain has been controlled. Oral intake 1320. Gastrostomy tube did put out 150 mL. REVIEW OF SYSTEMS: Remainder of review of systems negative for any pertinent positives and negatives. OBJECTIVE: GENERAL: Heena is a pleasant 82-year-old female. She is alert and orientated. VITAL SIGNS: TPR is 98.6, 93, 14. Blood pressure 138/61. HEENT: Negative. NECK: Supple. HEART: Regular rate and rhythm. LUNGS: Revealed coarse, wet rhonchi. There is some improvement when she does cough. ABDOMEN: Dressings dry and intact. G-tube to gravity drainage. Abdominal binder has been on. EXTREMITIES: Without peripheral edema. ASSESSMENT: Laparoscopic repair of large diaphragmatic hernia. Date of surgery 08/24/2017. PLAN: 1. Continue DuoNeb q.i.d. and p.r.n. 2. Discontinue Rowell catheter. 3. Saline lock IV. 4. Good pulmonary toilet. 5. Teach gastrostomy tube management to unclamp when she is experiencing any gas bloating or abdominal discomfort. 6. Continue good oral intake. 7. Plan discharge in the a.. Jeannette Sofia PA-C /[id number]
[2017-08-26] MEDS: Hydrochlorothiazide 25 MG Tab PO SCH (09:24)
[2017-08-26] MEDS: Lisinopril 20 MG Tab PO SCH (09:25)
[2017-08-26] MEDS: Aspirin 81 MG Tab.EC PO SCH (09:25)
[2017-08-26] MEDS: ALPRAZolam 0.5 MG Tab PO PRN ×2 (09:29→20:31)
[2017-08-26] MEDS: Pantoprazole 40 MG Tab.CR PO SCH (15:59)
[2017-08-26] MEDS: Simvastatin 20 MG Tab PO SCH (20:22)
[2017-08-27] MEDS: Albuterol/Ipratropium 3.0-0.5 MG/3 ML Neb Soln INH SCH ×3 (07:38→20:24)
[2017-08-27] MEDS: Formoterol/Mometasone 200-5 MCG 8.8 GM Inhaler IH SCH ×2 (07:44→20:24)
[2017-08-27] MEDS ORDERED: Ondansetron 4 MG Tab.DIS PO PRN (08:20)
[2017-08-27] MEDS: ALPRAZolam 0.5 MG Tab PO PRN ×2 (08:56→20:31)
[2017-08-27] MEDS: Hydrochlorothiazide 25 MG Tab PO SCH (08:56)
[2017-08-27] MEDS: Aspirin 81 MG Tab.EC PO SCH (08:57)
[2017-08-27] MEDS: Lisinopril 20 MG Tab PO SCH ×2 (08:57→08:58)
[2017-08-27] MEDS ORDERED: Magnesium Hydroxide 400 MG/5 ML Susp 30 ML Cup PO ONE (09:00)
--- NOTE | 2017-08-27 09:28 | PN ---
DATE OF SERVICE: 08/27/2017 SUBJECTIVE: Heena denies pain except for her back from being in bed. Oral intake 840. Denies any dysphagia. Urine output 1705. Her gastrostomy tube has been clamped and she has not needed to have it unclamped. She has no other concerns or questions. REVIEW OF SYSTEMS: Remainder of review of systems negative for any pertinent positives and negatives. OBJECTIVE: GENERAL: Heena Edwards is a pleasant 82-year-old female. VITAL SIGNS: TPR is 97.4, 97, 16. Blood pressure is 107/41. HEENT: Negative. NECK: Supple. HEART: Regular rate and rhythm. LUNGS: Clear. ABDOMEN: Soft. Incisions look good. Abdominal binders are on. EXTREMITIES: Without peripheral edema. ASSESSMENT: Laparoscopic repair of large diaphragmatic hernia. Date of surgery, 08/24/2017. PLAN: 1. Milk of magnesia 30 mL this morning. 2. Continue full liquid diet. 3. Continue to teach gastrostomy tube management to keep clamped and unclamped with any symptoms of gas, bloating, or abdominal discomfort. 4. Plan discharge in the a.m. after dietary instructions. Jeannette Sofia PA-C /[id number]
[2017-08-27] MEDS: Pantoprazole 40 MG Tab.CR PO SCH (16:50)
[2017-08-27] MEDS: Simvastatin 20 MG Tab PO SCH (20:24)
[2017-08-27] MEDS: Acetaminophen/HYDROcodone 108-2.5 MG/5 ML Soln 15 ML UD Cup PO PRN (20:30)
[2017-08-28] MEDS: Formoterol/Mometasone 200-5 MCG 8.8 GM Inhaler IH SCH (07:12)
[2017-08-28] MEDS: Albuterol/Ipratropium 3.0-0.5 MG/3 ML Neb Soln INH SCH ×2 (07:12→13:57)
[2017-08-28] MEDS ORDERED: Sodium Phosphate,Monobasic/Sodium Phosphate,Dibasic Enema 133 ML Bottle RECTAL ONE (08:00)
--- NOTE | 2017-08-28 09:16 | DISCH ---
ADMISSION DIAGNOSES: Large paraesophageal diaphragmatic hernia, hematemesis, hyperlipidemia, insomnia, chronic obstructive pulmonary disease, aortic calcification, hypertension, underweight due to malnutrition and esophageal reflux disease. DISCHARGE DIAGNOSIS: Laparoscopic repair of large paraesophageal diaphragmatic hernia. Date of surgery 08/24/2017. HISTORY: Heena is a pleasant 82-year-old female who has had a large paraesophageal diaphragmatic hernia. She was hospitalized earlier in the week with hematemesis and had an EGD. After preoperative evaluation and discussion of possible risks and possible complications, she wished to proceed with surgical procedure. HOSPITAL COURSE: Heena had her surgery on 08/24/2017. She had no operative complications. On postop day #1, she was started on clear liquid diet and advanced to full liquid diet. She was changed to oral pain medication. Her activity was good. She was taught how to care for her gastrostomy tube and she did have to have that opened once for an increased amount of pressure gas. Throughout her hospitalization, vital signs remained stable. Oral intake was adequate. Her pain was controlled and she received dietary instruction. She is ready to be discharged to home on 08/28/2017. PHYSICAL EXAMINATION: GENERAL: Heena Edwards is a pleasant 82-year-old female. VITAL SIGNS: Height is 5 feet 2.99 inches. Weight is 103 pounds. TPR is 98.2, 102, 16, blood pressure 128/56. HEENT: Negative. NECK: Supple. HEART: Regular rate and rhythm. LUNGS: Clear. ABDOMEN: Suture is in place. Gastrostomy tube in place. An abdominal binder has been on. EXTREMITIES: Without peripheral edema. DISPOSITION: Discharged to home. CONDITION: Stable and improving. FOLLOWUP: With Jeannette Sofia PA-C, on 09/04/2017 at 10:00 a.m. HOME MEDICATIONS: 1. Tylenol Amilcar Meltaways 640 mg q.4 hours p.r.n. pain. 2. Celebrex 200 mg oral at bedtime #30. 3. Zofran ODT 4 mg, use sublingual q.4 hours p.r.n. nausea. 4. She is to resume her home medication of aspirin low dose 81 mg daily, Symbicort 160/4.5 mcg 2 puffs twice daily, lisinopril 40 mg oral daily, hydrochlorothiazide 25 mg oral daily, Prilosec 20 mg oral twice daily, Zocor 20 mg at bedtime. 5. She is to stop taking her calcium, fish oil, and multivitamin until 1st postop appointment. DIET: After discharge, drink 8-10 glasses of water a day. Full liquid diet for 2 weeks. ACTIVITY: No lifting greater than 10 pounds for 2 weeks. Driving, do not drive for 1 week. May shower. Notify provider if any fever, increased pain, nausea, or vomiting. Wound incision care, keep site clean and dry. Wear abdominal binder for 2 weeks and then as tolerated. Special instruction is to unclamp gastrostomy tube if any increase in gas, bloating or nausea, then may reclamp and use incentive spirometer 10 times every hour while awake for 1 week.
[2017-08-28] MEDS: Lisinopril 20 MG Tab PO SCH (09:46)
[2017-08-28] MEDS: Hydrochlorothiazide 25 MG Tab PO SCH (09:47)
[2017-08-28] MEDS: Aspirin 81 MG Tab.EC PO SCH (09:47)
--- NOTE | 2017-08-28 17:59 | OR ---
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 OPERATIVE PROCEDURE: Diagnostic laparoscopy with: 1. Repair of a large diaphragmatic hernia with partial fundoplication (38930). 2. Placement of tube gastrostomy (73883). ANESTHESIA: General. SHANK PINNER: Jeannette Sofia PA-C INDICATIONS FOR PROCEDURE: This is an 82-year-old with a very large paraesophageal diaphragmatic hernia. Clinically, she has been able to eat but quite limited amounts and appears to have a significant degree of partial gastric outlet obstruction. The plan is to proceed with a diagnostic laparoscopy and repair of the diaphragmatic hernia. We will likely do a partial fundoplication, so as to avoid much in the way of dysphagia and otherwise will be quite an edematous fundus and esophagogastric junction area. I will also place a tube gastrostomy to be able to facilitate fixation of the stomach in an intraabdominal location, as well as potentially providing a venting mechanism, should the patient develop some degree of gastric ileus. Potential risks of the procedure were reviewed with the patient, including bleeding, infection, injury to underlying viscera, possible recurrence of the problem over time, as well as possibility of cardio- pulmonary, septic, or hemorrhagic complications leading to were discussed , and the patient wishes to proceed. DETAILS OF PROCEDURE: The patient was taken to the operating room, placed in a supine position, and general endotracheal anesthesia was induced. A Rowell catheter was inserted, and the abdomen was prepped and draped. At 15 cm of inferior and 5 cm left of xiphoid process, a transverse incision was made and the peritoneal cavity entered under direct vision with an Optiview trocar. The peritoneal cavity was inflated with 15 mmHg pressure with CO2. Laparoscope was reinserted. No underlying trocar incision site injuries were seen. Following this, 4 additional trocars were placed across the upper and mid abdomen, and general exploration is undertaken. As expected, the patient was then noted to have a quite dramatic diaphragmatic hernia with perhaps 6 or 7 cm of stomach being in the abdomen at this point. Otherwise, no specific additional abnormalities were noted. The stomach was then started to be reduced and the peritoneum along the edges of the diaphragmatic defect was divided and then this continued upward posteriorly and superiorly. The peritoneal sac actually overlay the aortic arch, and it was somewhat superior to the aortic arch. This all eventually was taken down with a combination of blunt dissection , some electrocautery, as well as staplers for portions of the hernia sac. Once this was all removed, the esophagogastric junction at that point could be mobilized into an intraabdominal location. A posterior crural repair was then accomplished using #1 Ethibond sutures with PTFE pledgets. At that point, the diaphragmatic repair appeared to be satisfactory. At this point, the short gastric vessels to the fundus were taken down with Harmonic scalpel. This resulted in a nicely mobile fundus. This was retrieved through a retroesophageal window and fixed on the right side of the distal esophagus to the adjacent diaphragm, creating a roughly 200 or 220 cm wrap. This primarily was displacing the esophagus somewhat anteriorly, creating some angulation at that level. A tiny wrap was not felt to be safe, given the amount of edema that is present, and a more complete wrap would likely result in quite severe dysphagia. At this point, the tube gastrostomy was then constructed through the mid left subcostal trocar site, an 18-Welsh Rowell catheter was placed. On the mid greater curvature, a pursestring stitch of #0 Ethibond stitch was then placed, and an opening was then made in the stomach. The gastrostomy tube was then inserted into the gastric lumen and inflated with 10 mL of saline and the pursestring stitch then pulled up snugly. This stitch was then held on and sutured up to the abdominal wall as the stomach and gastrostomy site were pulled up to the abdominal wall. Three additional sutures of 3-0 Vicryl stitch between the stomach and the overlying abdominal wall were then likewise placed, and the tube itself was sutured at the skin level with a #2 nylon stitch. At this point, no further problems were noted. The trocars were sequentially removed. The patient had a very thin muscle layer, so each of the 12 mm trocars were closed at the fascial level with 0 Vicryl stitch, and the skin of each incision with 6-0 Vicryl skin stitch. One drain has been placed in the left lateral trocar site and sutured to the skin with some 4-0 Vicryl stitch as well. The patient was taken to the recovery room in satisfactory condition. Physician assistant superintendent, Jeannette Sofia, played an essential role in assisting in this case, helping to position the patient, retract structures as needed, as well as suturing and cutting sutures when indicated. Her presence improved patient safety and decreased operative time. Sergo Mueller MD /[id number] MTDD
== END 2017-08-28 13:00 | disposition home or self-care (01) | DRG 327 ==
LOC: JP.SDS 07:32 → JP.SDSSCHI 08:00 → JP.ICU 13:30 → EDSTATUS 14:30 → JP.2SS 08-26 17:17
PROVIDERS: ADMIT Surgery; ATTEND Surgery
PROC: 0BQT4ZZ Repair Diaphragm, Percutaneous Endoscopic Approach (ICD-10-PCS; principal; 2017-08-24)
PROC: 0DV44ZZ Restriction of Esophagogastric Junction, Percutaneous Endoscopic Approach (ICD-10-PCS; 2017-08-24)
PROC: 0DH64UZ Insertion of Feeding Device into Stomach, Percutaneous Endoscopic Approach (ICD-10-PCS; 2017-08-24)
DX: K44.9 Diaphragmatic hernia without obstruction or gangrene (principal); E46 Unspecified protein-calorie malnutrition; Z68.1 Body mass index [BMI] 19.9 or less, adult; F17.210 Nicotine dependence, cigarettes, uncomplicated; I10 Essential (primary) hypertension; J44.9 Chronic obstructive pulmonary disease, unspecified; K21.9 Gastro-esophageal reflux disease without esophagitis; F41.9 Anxiety disorder, unspecified; H54.7 Unspecified visual loss; E78.5 Hyperlipidemia, unspecified; Z79.82 Long term (current) use of aspirin; G47.00 Insomnia, unspecified; I70.0 Atherosclerosis of aorta
CPT/HCPCS: 36415; 86850; 86900; 86901; 86920; 86922; 88302; 94640; 94640-76; A9270-GY; C9113; J0330; J0690; J0694; J1100; J1170; J2185; J2405; J2704; J2710; J2765; J3010; J3410; J7040; J7042; J7050; J7120; J7620

== ENCOUNTER 2020-06-06 02:28 | Inpatient (IN) | payer MEDICARE ==
[2020-06-06] MEDS ORDERED: Sodium Chloride 0.9% 10 ML Syringe FLUSH PRN ×2 (02:45→05:26)
[2020-06-06] MEDS ORDERED: Pantoprazole 40 MG Vial IVPUSH ONE ×2 (02:45→04:57)
[2020-06-06] MEDS ORDERED: Sodium Chloride 0.9% 1,000 ML IV SCH ×2 (02:45→04:15)
[2020-06-06] MEDS ORDERED: Octreotide 100 MCG/ML SDV IVPUSH ONE (02:48)
[2020-06-06] MEDS ORDERED: Ondansetron 4 MG/2 ML SDV IVPUSH ONE (02:50)
--- NOTE | 2020-06-06 02:53 | EDM.PDOC ---
ED HPI GENERAL MEDICAL PROBLEM - General Chief Complaint: Abdominal Pain Stated Complaint: [facility] Time Seen by Provider: 06/06/20 02:39 Source of Information: Reports: Patient, EMS, RN Notes Reviewed History Limitations: Reports: No Limitations - History of Present Illness INITIAL COMMENTS - FREE TEXT/NARRATIVE: 85-year-old female presents emergency department today with complaint of bright red emesis and maroon-colored stools both started last night about 7:00, she states she had this 1 time before with her hiatal hernia about 4 years ago, states that she is never had a colonoscopy, states she feels generally weak but no lightheadedness has not felt like passing out - Related Data Allergies Allergy/AdvReac Type Severity Reaction Status Date / Time No Known Allergies Allergy Verified 06/06/20 02:36 Home Meds: Home Meds ALPRAZolam [Xanax] 1 mg PO BID PRN 09/09/14 [History] Acetaminophen [Tylenol Extra Strength] 500 mg PO Q6HR PRN 09/09/14 [History] Budesonide/Formoterol [Symbicort 160-4.5 MCG] 2 puff INH BID 09/09/14 [History] Lisinopril [Zestril] 20 mg PO DAILY 09/09/14 [History] Omeprazole [Prilosec] 40 mg PO DAILY 09/09/14 [History] Simvastatin [Zocor] 20 mg PO BEDTIME 09/09/14 [History] traZODone 25 mg PO BEDTIME PRN 09/09/14 [History] Aspirin [Adult Low Dose Aspirin EC] 81 mg PO DAILY 08/23/17 [History] Albuterol Sulfate [Albuterol Sulfate Hfa] 2 puff INH Q4H PRN 06/06/20 [History] Calcium Carbonate [Calcium] 500 mg PO DAILY 06/06/20 [History] Calcium Carbonate/Vitamin D3 [Calcium 600 + D3 Softgel] 1 each PO BID 06/06/20 [History] Citalopram [Citalopram HBr] 10 mg PO DAILY 06/06/20 [History] Multivitamin [Multivitamins] 1 tab PO DAILY 06/06/20 [History] [place]-3/DHA/Epa/Fish Oil [[place] 3 500 Softgel] 2 cap PO DAILY 06/06/20 [History] Past Medical History HEENT History: Reports: Impaired Vision Cardiovascular History: Reports: Hypertension Respiratory History: Reports: COPD Gastrointestinal History: Reports: GERD, Hiatal Hernia Genitourinary History: Reports: UTI, Recurrent IT SUPPORT ANALYST History: Reports: Musculoskeletal History: Reports: Fracture, Other (See Below) Other Musculoskeletal History: Right arm fracture Psychiatric History: Reports: Anxiety Hematologic History: Reports: Blood Transfusion(s) Immunologic History: Reports: None Oncologic (Cancer) History: Reports: None Dermatologic History: Reports: None - Infectious Disease History Infectious Disease History: Reports: Chicken Pox, Measles, Mumps - Past Surgical History Head Surgeries/Procedures: Reports: None HEENT Surgical History: Reports: None Cardiovascular Surgical History: Reports: None Respiratory Surgical History: Reports: None GI Surgical History: Reports: Hernia Repair/Other Female Surgical History: Reports: D&C Endocrine Surgical History: Reports: None Neurological Surgical History: Reports: None Musculoskeletal Surgical History: Reports: Other (See Below) Other Musculoskeletal Surgeries/Procedures:: RIGHT ARM SURGERY Oncologic Surgical History: Reports: None Dermatological Surgical History: Reports: None Social & Family History - Family History Family Medical History: Noncontributory - Tobacco Use Smoking Status *Q: Current Every Day Smoker Years of Tobacco use: 70 Packs/Tins Daily: 0.2 - Caffeine Use Caffeine Use: Reports: None - Recreational Drug Use Recreational Drug Use: No ED ROS GENERAL - Review of Systems Review Of Systems: See Below Constitutional: Reports: Weakness HEENT: Reports: No Symptoms Respiratory: Reports: No Symptoms Cardiovascular: Reports: No Symptoms GI/Abdominal: Reports: Hematemesis, Melena. Denies: Abdominal Pain : Reports: No Symptoms Musculoskeletal: Reports: No Symptoms Skin: Reports: No Symptoms Neurological: Reports: No Symptoms ED EXAM, GI/ABD - Physical Exam Exam: See Below Exam Limited By: No Limitations General Appearance: Alert, Mild Distress Respiratory/Chest: No Respiratory Distress, Lungs Clear, Normal Breath Sounds, No Accessory Muscle Use, Chest Non-Tender Cardiovascular: Regular Rate, Rhythm, No Murmur GI/Abdominal Exam: Soft, Non-Tender Extremities: Normal Inspection Course - Vital Signs Last Recorded V/S: Last Vital Signs Temp 97.1 F 06/06/20 02:34 Pulse 67 06/06/20 02:34 Resp 16 06/06/20 02:34 BP 136/65 06/06/20 02:34 Pulse Ox 98 06/06/20 02:34 - Orders/Labs/Meds Orders: Active Orders 24 hr Category Date Time Status Head of Bed Elevation [RC] ASDIRECTED Care 06/06/20 02:45 Active Intake and Output [RC] ASDIRECTED Care 06/06/20 02:45 Active Peripheral IV Care [RC] . DIRECTED Care 06/06/20 02:46 Active Nothing per Oral Now Diet [DIET] Diet 06/06/20 Breakfast Active Octreotide [SandoSTATIN] 500 mcg Med 06/06/20 03:00 Active Sodium Chloride 0.9% [Normal Saline] 497.5 ml IV Q10H Sodium Chloride 0.9% [Normal Saline] 1,000 ml Med 06/06/20 02:45 Active IV ASDIRECTED Sodium Chloride 0.9% [Saline Flush] Med 06/06/20 02:45 Active 10 ml FLUSH ASDIRECTED PRN Peripheral IV Insertion Adult [OM.PC] Urgent Oth 06/06/20 02:45 Ordered Medication Orders Sodium Chloride (Normal Saline) 1,000 mls @ 999 mls/hr IV ASDIRECTED PHUONG Last Admin: 06/06/20 03:03 Dose: 999 mls/hr Documented by: MEGHA Octreotide Acetate 500 mcg/ (Sodium Chloride) 500 mls @ 50 mls/hr IV Q10H PHUONG Last Admin: 06/06/20 03:00 Dose: 50 mcg/hr, 50 mls/hr Documented by: MEGHA Sodium Chloride (Saline Flush) 10 ml FLUSH ASDIRECTED PRN PRN Reason: Keep Vein Open Labs: Laboratory Tests 06/06/20 06/06/20 06/06/20 Range/Units 02:30 02:30 02:30 WBC 16.7 H (4.5-11.0) K/uL RBC 4.61 (3.30-5.50) M/uL Hgb 12.6 D (12.0-15.0) g/dL Hct 38.9 (36.0-48.0) % MCV 84 (80-98) fL MCH 27 (27-31) pg MCHC 32 (32-36) % Plt Count 263 (150-400) K/uL Neut % (Auto) 86 H (36-66) % Lymph % (Auto) 3 L (24-44) % Bremer % (Auto) 11 H (2-6) % Eos % (Auto) 0 L (2-4) % Baso % (Auto) 0 (0-1) % PT 10.8 (9.5-12.0) sec INR 0.99 (0.80-1.20) APTT 24.7 L (27.0-36.0) sec Sodium 140 (140-148) mmol/L Potassium 3.5 L (3.6-5.2) mmol/L Chloride 106 (100-108) mmol/L Carbon Dioxide 25 (21-32) mmol/L Anion Gap 12.5 (5.0-14.0) mmol/L BUN 25 H (7-18) mg/dL Creatinine 0.9 (0.6-1.0) mg/dL Est Cr Clr Drug Dosing 31.32 mL/min Estimated GFR (MDRD) 60 (>60) Glucose 177 H (74-106) mg/dL Calcium 9.0 (8.5-10.1) mg/dL Total Bilirubin 0.5 D (0.2-1.0) mg/dL AST 20 (15-37) U/L ALT 18 (12-78) U/L Alkaline Phosphatase 75 (46-116) U/L Total Protein 6.2 L (6.4-8.2) g/dL Albumin 3.4 (3.4-5.0) g/dL Globulin 2.8 (2.3-3.5) g/dL Albumin/Globulin Ratio 1.2 (1.2-2.2) Blood Type Gel Antibody Screen 06/06/20 Range/Units 02:30 WBC (4.5-11.0) K/uL RBC (3.30-5.50) M/uL Hgb (12.0-15.0) g/dL Hct (36.0-48.0) % MCV (80-98) fL MCH (27-31) pg MCHC (32-36) % Plt Count (150-400) K/uL Neut % (Auto) (36-66) % Lymph % (Auto) (24-44) % Bremer % (Auto) (2-6) % Eos % (Auto) (2-4) % Baso % (Auto) (0-1) % PT (9.5-12.0) sec INR (0.80-1.20) APTT (27.0-36.0) sec Sodium (140-148) mmol/L Potassium (3.6-5.2) mmol/L Chloride (100-108) mmol/L Carbon Dioxide (21-32) mmol/L Anion Gap (5.0-14.0) mmol/L BUN (7-18) mg/dL Creatinine (0.6-1.0) mg/dL Est Cr Clr Drug Dosing mL/min Estimated GFR (MDRD) (>60) Glucose (74-106) mg/dL Calcium (8.5-10.1) mg/dL Total Bilirubin (0.2-1.0) mg/dL AST (15-37) U/L ALT (12-78) U/L Alkaline Phosphatase (46-116) U/L Total Protein (6.4-8.2) g/dL Albumin (3.4-5.0) g/dL Globulin (2.3-3.5) g/dL Albumin/Globulin Ratio (1.2-2.2) Blood Type A POSITIVE Gel Antibody Screen Negative Meds: Medications Generic Name Dose Route Start Last Admin Trade Name Freq PRN Reason Stop Dose Admin Sodium Chloride 1,000 mls @ 999 mls/hr 06/06/20 02:45 06/06/20 03:03 Normal Saline IV 999 mls/hr ASDIRECTED PHUONG Administration Octreotide Acetate 500 mcg/ 500 mls @ 50 mls/hr 06/06/20 03:00 06/06/20 03:00 Sodium Chloride IV 50 mcg/hr Q10H PHUONG 50 mls/hr Administration 50 MCG/HR Sodium Chloride 10 ml 06/06/20 02:45 Saline Flush FLUSH ASDIRECTED PRN Keep Vein Open Discontinued Medications Generic Name Dose Route Start Last Admin Trade Name Freq PRN Reason Stop Dose Admin Octreotide Acetate 50 mcg 06/06/20 02:48 06/06/20 03:11 Sandostatin IVPUSH 06/06/20 02:49 50 mcg ONETIME ONE Administration Ondansetron HCl 4 mg 06/06/20 02:50 06/06/20 03:00 Zofran IVPUSH 06/06/20 02:51 4 mg ONETIME ONE Administration Pantoprazole Sodium 40 mg 06/06/20 02:45 06/06/20 03:11 Protonix Iv IVPUSH 06/06/20 02:46 40 mg ONETIME ONE Administration Prochlorperazine Edisylate 5 mg 06/06/20 03:54 Compazine IVPUSH 06/06/20 03:55 ONETIME ONE Departure - Departure Time of Disposition: 04:03 Disposition: Admitted As Inpatient 67 Condition: Fair Clinical Impression: GI bleed Qualifiers: GI bleed type/associated pathology: unspecified gastrointestinal hemorrhage type Qualified Code(s): K92.2 - Gastrointestinal hemorrhage, unspecified - Discharge Information Referrals: PCP,None [Primary Care Provider] - Forms: ED Department Discharge Sepsis Event Note (ED) - Evaluation Sepsis Screening Result: No Definite Risk - Focused Exam Vital Signs: Vital Signs Temp Pulse Resp BP Pulse Ox 06/06/20 02:34 97.1 F 67 16 136/65 98 - My Orders Last 24 Hours: My Active Orders 06/06/20 02:45 Head of Bed Elevation [RC] ASDIRECTED Intake and Output [RC] ASDIRECTED Sodium Chloride 0.9% [Normal Saline] 1,000 ml IV ASDIRECTED Sodium Chloride 0.9% [Saline Flush] 10 ml FLUSH ASDIRECTED PRN Peripheral IV Insertion Adult [OM.PC] Urgent 06/06/20 02:46 Peripheral IV Care [RC] . DIRECTED 06/06/20 03:00 Octreotide [SandoSTATIN] 500 mcg Sodium Chloride 0.9% [Normal Saline] 497.5 ml IV Q10H 06/06/20 Breakfast Nothing per Oral Now Diet [DIET] - Assessment/Plan Last 24 Hours: My Active Orders 06/06/20 02:45 Head of Bed Elevation [RC] ASDIRECTED Intake and Output [RC] ASDIRECTED Sodium Chloride 0.9% [Normal Saline] 1,000 ml IV ASDIRECTED Sodium Chloride 0.9% [Saline Flush] 10 ml FLUSH ASDIRECTED PRN Peripheral IV Insertion Adult [OM.PC] Urgent 06/06/20 02:46 Peripheral IV Care [RC] . DIRECTED 06/06/20 03:00 Octreotide [SandoSTATIN] 500 mcg Sodium Chloride 0.9% [Normal Saline] 497.5 ml IV Q10H 06/06/20 Breakfast Nothing per Oral Now Diet [DIET] Plan: Assessment Acuity = acute Site and laterality = GI bleed Etiology = unknown Manifestations = none Location of injury = Home Lab values = hemoglobin 12.6 WBC elevated 16.7 consistent with leukocytosis the remainder of electrolytes unremarkable Plan Call discussed case hospitalist on-call at 4:00 he can agreed to come and evaluate the patient emergency department for admission This note was dictated using [employer] voice recognition software please call with any questions on syntax or grammar.
[2020-06-06] MEDS ORDERED: Octreotide 500 MCG in Sodium Chloride 0.9% 497.5 ML IV SCH (03:00)
[2020-06-06] MEDS ORDERED: Prochlorperazine 10 MG/2 ML SDV IVPUSH ONE (03:54)
[2020-06-06] MEDS ORDERED: LORazepam 2 MG/ML SDV IVPUSH ONE (04:16)
[2020-06-06] MEDS ORDERED: Potassium Chloride Riders 40 MEQ in Premix Bag 1 BAG IV ONE (04:58)
[2020-06-06] MEDS ORDERED: Sodium Chloride 0.9% 100 ML with Pantoprazole 80 MG IV SCH ×2 (05:00)
--- NOTE | 2020-06-06 05:08 | PCM.HP.2 ---
H&P History of Present Illness - General Date of Service: 06/06/20 Admit Problem/Dx: Admission Diagnosis/Problem Admission Diagnosis/Problem Bleeding Source of Information: Patient, Provider, RN Notes Reviewed History Limitations: Reports: No Limitations - History of Present Illness Initial Comments - Free Text/Narative: Ms. Edwards is an 85-year-old woman who was admitted through the emergency department for further evaluation of GI bleed. She has a known history of COPD, reports that she had been feeling well until last night when she developed nausea, vomiting, and diarrhea. Initially there was no blood in the emesis or stool. She then developed hematemesis with darker looking blood and blood in the stool as well which appeared to be more red. She reports that she has had a hiatal hernia with surgery. Denies any previous history of GI bleeding. Respiratory status has been stable and she has been afebrile. There is a moderate elevation in her white blood cell count. She currently denies significant abdominal pain. - Related Data Allergies/Adverse Reactions: Allergies Allergy/AdvReac Type Severity Reaction Status Date / Time No Known Allergies Allergy Verified 06/06/20 02:36 Home Medications: Home Meds ALPRAZolam [Xanax] 1 mg PO BID PRN 09/09/14 [History] Acetaminophen [Tylenol Extra Strength] 500 mg PO Q6HR PRN 09/09/14 [History] Budesonide/Formoterol [Symbicort 160-4.5 MCG] 2 puff INH BID 09/09/14 [History] Lisinopril [Zestril] 20 mg PO DAILY 09/09/14 [History] Omeprazole [Prilosec] 40 mg PO DAILY 09/09/14 [History] Simvastatin [Zocor] 20 mg PO BEDTIME 09/09/14 [History] traZODone 25 mg PO BEDTIME PRN 09/09/14 [History] Aspirin [Adult Low Dose Aspirin EC] 81 mg PO DAILY 08/23/17 [History] Albuterol Sulfate [Albuterol Sulfate Hfa] 2 puff INH Q4H PRN 06/06/20 [History] Calcium Carbonate [Calcium] 500 mg PO DAILY 06/06/20 [History] Calcium Carbonate/Vitamin D3 [Calcium 600 + D3 Softgel] 1 each PO BID 06/06/20 [History] Citalopram [Citalopram HBr] 10 mg PO DAILY 06/06/20 [History] Multivitamin [Multivitamins] 1 tab PO DAILY 06/06/20 [History] [place]-3/DHA/Epa/Fish Oil [[place] 3 500 Softgel] 2 cap PO DAILY 06/06/20 [History] Past Medical History HEENT History: Reports: Impaired Vision Cardiovascular History: Reports: Hypertension Respiratory History: Reports: COPD Gastrointestinal History: Reports: GERD, Hiatal Hernia Genitourinary History: Reports: UTI, Recurrent CARD PLACER History: Reports: Musculoskeletal History: Reports: Fracture, Other (See Below) Other Musculoskeletal History: Right arm fracture Neurological History: Reports: None Psychiatric History: Reports: Anxiety Endocrine/Metabolic History: Reports: None Hematologic History: Reports: Blood Transfusion(s) Immunologic History: Reports: None Oncologic (Cancer) History: Reports: None Dermatologic History: Reports: None - Infectious Disease History Infectious Disease History: Reports: Chicken Pox, Measles, Mumps - Past Surgical History Head Surgeries/Procedures: Reports: None HEENT Surgical History: Reports: None Cardiovascular Surgical History: Reports: None Respiratory Surgical History: Reports: None GI Surgical History: Reports: Hernia Repair/Other Female Surgical History: Reports: D&C Endocrine Surgical History: Reports: None Neurological Surgical History: Reports: None Musculoskeletal Surgical History: Reports: Other (See Below) Other Musculoskeletal Surgeries/Procedures:: RIGHT ARM SURGERY Oncologic Surgical History: Reports: None Dermatological Surgical History: Reports: None Social & Family History - Family History Family Medical History: Noncontributory - Tobacco Use Smoking Status *Q: Current Every Day Smoker Years of Tobacco use: 70 Packs/Tins Daily: 0.2 - Caffeine Use Caffeine Use: Reports: None - Recreational Drug Use Recreational Drug Use: No H&P Review of Systems - Review of Systems: Review Of Systems: See Below General: Reports: Malaise, Weakness, Fatigue. Denies: Fever, Chills HEENT: Reports: No Symptoms Pulmonary: Reports: Shortness of Breath. Denies: Wheezing, Pleuritic Chest Pain, Cough, Sputum, Hemoptysis Cardiovascular: Reports: Dyspnea on Exertion. Denies: Chest Pain, Palpitations, Orthopnea, PND, Edema, Lightheadedness Gastrointestinal: Reports: Diarrhea, Hematemesis, Hematochezia, Nausea, Vomiting. Denies: Abdominal Pain, Difficulty Swallowing, Distension Genitourinary: Reports: No Symptoms Musculoskeletal: Reports: No Symptoms Skin: Reports: No Symptoms Psychiatric: Reports: No Symptoms Neurological: Reports: No Symptoms Hematologic/Lymphatic: Reports: No Symptoms Immunologic: Reports: No Symptoms Exam - Exam Exam: See Below - Vital Signs Vital Signs: Last Vital Signs Temp 97.1 F 06/06/20 02:34 Pulse 73 06/06/20 04:44 Resp 16 06/06/20 04:44 BP 136/57 L 06/06/20 04:44 Pulse Ox 93 L 06/06/20 04:44 Weight: 94 lb - Exam Quality Assessment: DVT Prophylaxis General: Alert, Oriented, Cooperative, Moderate Distress HEENT: Conjunctiva Clear, Hearing Intact, Normal Nasal Septum, Posterior Pharynx Clear, Pupils Equal. No: Mucosa Moist & [place] Neck: Supple, Trachea Midline, +2 Carotid Pulse wo Bruit Lungs: Clear to Auscultation, Normal Respiratory Effort, Decreased Breath S ounds. No: Rales, Rhonchi, Wheezing Cardiovascular: Regular Rate, Regular Rhythm, Normal S1, Normal S2. No: Systolic Murmur, Diastolic Murmur GI/Abdominal Exam: Soft, Non-Tender, No Organomegaly, No Distention Back Exam: Normal Inspection, Full Range of Motion Extremities: Non-Tender, No Pedal Edema Skin: Warm, Dry, Intact Neurological: Cranial Nerves Intact, Strength Equal Bilateral, Normal Speech, Normal Tone, Sensation Intact. No: Focal Deficit Neuro Extensive - Mental Status: Alert, Oriented x3, Normal Mood/Affect, Normal Cognition, Memory Intact - Patient Data Lab Results Last 24 hrs: Laboratory Results - last 24 hr 06/06/20 06/06/20 06/06/20 Range/Units 02:30 02:30 02:30 WBC 16.7 H (4.5-11.0) K/uL RBC 4.61 (3.30-5.50) M/uL Hgb 12.6 D (12.0-15.0) g/dL Hct 38.9 (36.0-48.0) % MCV 84 (80-98) fL MCH 27 (27-31) pg MCHC 32 (32-36) % Plt Count 263 (150-400) K/uL Neut % (Auto) 86 H (36-66) % Lymph % (Auto) 3 L (24-44) % [place] % (Auto) 11 H (2-6) % Eos % (Auto) 0 L (2-4) % Baso % (Auto) 0 (0-1) % PT 10.8 (9.5-12.0) sec INR 0.99 (0.80-1.20) APTT 24.7 L (27.0-36.0) sec Sodium 140 (140-148) mmol/L Potassium 3.5 L (3.6-5.2) mmol/L Chloride 106 (100-108) mmol/L Carbon Dioxide 25 (21-32) mmol/L Anion Gap 12.5 (5.0-14.0) mmol/L BUN 25 H (7-18) mg/dL Creatinine 0.9 (0.6-1.0) mg/dL Est Cr Clr Drug Dosing 31.32 mL/min Estimated GFR (MDRD) 60 (>60) Glucose 177 H (74-106) mg/dL Calcium 9.0 (8.5-10.1) mg/dL Total Bilirubin 0.5 D (0.2-1.0) mg/dL AST 20 (15-37) U/L ALT 18 (12-78) U/L Alkaline Phosphatase 75 (46-116) U/L Total Protein 6.2 L (6.4-8.2) g/dL Albumin 3.4 (3.4-5.0) g/dL Globulin 2.8 (2.3-3.5) g/dL Albumin/Globulin Ratio 1.2 (1.2-2.2) Blood Type Gel Antibody Screen 06/06/20 Range/Units 02:30 WBC (4.5-11.0) K/uL RBC (3.30-5.50) M/uL Hgb (12.0-15.0) g/dL Hct (36.0-48.0) % MCV (80-98) fL MCH (27-31) pg MCHC (32-36) % Plt Count (150-400) K/uL Neut % (Auto) (36-66) % Lymph % (Auto) (24-44) % [place] % (Auto) (2-6) % Eos % (Auto) (2-4) % Baso % (Auto) (0-1) % PT (9.5-12.0) sec INR (0.80-1.20) APTT (27.0-36.0) sec Sodium (140-148) mmol/L Potassium (3.6-5.2) mmol/L Chloride (100-108) mmol/L Carbon Dioxide (21-32) mmol/L Anion Gap (5.0-14.0) mmol/L BUN (7-18) mg/dL Creatinine (0.6-1.0) mg/dL Est Cr Clr Drug Dosing mL/min Estimated GFR (MDRD) (>60) Glucose (74-106) mg/dL Calcium (8.5-10.1) mg/dL Total Bilirubin (0.2-1.0) mg/dL AST (15-37) U/L ALT (12-78) U/L Alkaline Phosphatase (46-116) U/L Total Protein (6.4-8.2) g/dL Albumin (3.4-5.0) g/dL Globulin (2.3-3.5) g/dL Albumin/Globulin Ratio (1.2-2.2) Blood Type A POSITIVE Gel Antibody Screen Negative Result Diagrams: 06/06/20 02:30 06/06/20 02:30 Vern Results Last 24 hrs: Microbiology 06/06/20 03:31 Gastric Occult Blood - Final Gastric Fluid 06/06/20 02:45 Stool Occult Blood (VERN) - Final Stool / Feces Sepsis Event Note - Evaluation Sepsis Screening Result: No Definite Risk - Focused Exam Vital Signs: Vital Signs Temp Pulse Resp BP Pulse Ox 06/06/20 04:44 73 16 136/57 L 93 L 06/06/20 04:13 67 18 151/71 H 98 06/06/20 02:34 97.1 F 67 16 136/65 98 06/06/20 02:28 97.1 F 65 18 136/65 98 Date Exam was Performed: 06/06/20 Time Exam was Performed: 05:26 *Q Meaningful Use (ADM) - VTE *Q VTE Pharmacological Contraindications *Q: Active Hemorrhage - VTE Risk Assess *Q Each Risk Factor Represents 1 Point: Abnormal Pulmonary Function (COPD) Total Score 1 Point Risk Factors: 1 Each Risk Factor Represents 2 Points: None Total Score 2 Point Risk Factors: 0 Each Risk Factor Represents 3 Points: Age 75 Years or Greater Total Score 3 Point Risk Factors: 3 Each Risk Factor Represents 5 Points: None Total Score 5 Point Risk Factors: 0 Venous Thromboembolism Risk Factor Score *Q: 4 Problem List Initiated/Reviewed/Updated: Yes Orders Last 24hrs: Active Orders 24 hr Category Date Time Status Patient Status Manage Transfer [TRANSFER] Routine ADT 06/06/20 05:00 Active Head of Bed Elevation [RC] ASDIRECTED Care 06/06/20 02:45 Active Intake and Output [RC] ASDIRECTED Care 06/06/20 02:45 Active Peripheral IV Care [RC] . DIRECTED Care 06/06/20 02:46 Active Nothing per Oral Now Diet [DIET] Diet 06/06/20 Breakfast Active HGB [HEMOGLOBIN] [HEME] Stat Lab 06/06/20 06:30 Ordered Octreotide [SandoSTATIN] 500 mcg Med 06/06/20 03:00 Active Sodium Chloride 0.9% [Normal Saline] 497.5 ml IV Q10H Pantoprazole [ProTONIX IV] Med 06/06/20 04:57 Once 40 mg IVPUSH ONETIME ONE Potassium Chloride Riders [KCL 40 MEQ in Water 100 ML] Med 06/06/20 04:58 O rdered 40 meq Premix Bag 1 bag IV ONETIME Sodium Chloride 0.9% [Normal Saline] 1,000 ml Med 06/06/20 02:45 Active IV ASDIRECTED Sodium Chloride 0.9% [Normal Saline] 1,000 ml Med 06/06/20 04:15 Active IV ASDIRECTED Sodium Chloride 0.9% [Normal Saline] 100 ml Med 06/06/20 05:00 Ordered Pantoprazole [ProTONIX IV] 80 mg IV 10 mls/hr Sodium Chloride 0.9% [Saline Flush] Med 06/06/20 02:45 Active 10 ml FLUSH ASDIRECTED PRN Peripheral IV Insertion Adult [OM.PC] Urgent Oth 06/06/20 02:45 Ordered Resuscitation Status Routine Resus Stat 06/06/20 05:03 Ordered Medication Orders Sodium Chloride (Normal Saline) 1,000 mls @ 999 mls/hr IV ASDIRECTED [facility] Last Admin: 06/06/20 03:03 Dose: 999 mls/hr Documented by: MEGHA Octreotide Acetate 500 mcg/ (Sodium Chloride) 500 mls @ 50 mls/hr IV Q10H [facility] Last Admin: 06/06/20 03:00 Dose: 50 mcg/hr, 50 mls/hr Documented by: MEGHA Sodium Chloride (Normal Saline) 1,000 mls @ 125 mls/hr IV ASDIRECTED [facility] Last Admin: 06/06/20 04:24 Dose: 125 mls/hr Documented by: MEGHA Pantoprazole Sodium 80 mg/ (Sodium Chloride) 100 mls @ 10 mls/hr IV .Q10H [facility] Potassium Chloride 40 meq/ (Premix) 100 mls @ 25 mls/hr IV ONETIME ONE Stop: 06/06/20 08:57 Pantoprazole Sodium (Protonix Iv) 40 mg IVPUSH ONETIME ONE Stop: 06/06/20 04:58 Sodium Chloride (Saline Flush) 10 ml FLUSH ASDIRECTED PRN PRN Reason: Keep Vein Open Assessment/Plan Comment:: ASSESSMENT AND PLAN ACUTE GI BLEED-relatively abrupt onset of hematemesis and hematochezia. Denies significant abdominal pain and has been afebrile. No previous history of GI bleed. Most likely upper GI in origin given that she is experience post hematemesis and hematochezia. -Serial hemoglobin levels -Maintain 2 IV sites -Octreotide bolus and octreotide continuous infusion -Protonix bolus and continuous infusion -N.p.o. -Consult Dr. Zhou for EGD/colonoscopy -Hold aspirin COPD-currently well compensated with no evidence of acute exacerbation or underlying infection -Continue outpatient medications MAINTENANCE ISSUES -DVT prophylaxis; SCUDs -GI prophylaxis; Protonix as above -[place] catheter; not indicated -Nutrition; n.p.o. -Nicotine dependence; not required CODE STATUS-FULL CODE ADMISSION STATUS-patient will be admitted to inpatient status, expect at least a 2 night hospital stay for evaluation and management of problems as outlined above. At the time of this admission I do not reasonably expected evaluation and management of this problem will require more than a 96 hour hospital stay. DISPOSITION-anticipate discharge to home after the hospital stay. PRIMARY CARE PROVIDER-Cris Jasmine - Mortality Measure Prognosis:: Good
[2020-06-06] MEDS ORDERED: Albuterol/Ipratropium 3.0-0.5 MG/3 ML Neb Soln NEB PRN (05:26)
[2020-06-06] MEDS ORDERED: ALPRAZolam 0.5 MG Tab PO PRN (05:26)
[2020-06-06] MEDS ORDERED: Potassium Chloride 20 MEQ in Premix Bag 2 BAG IV SCH (06:00)
[2020-06-06] MEDS ORDERED: Potassium Chloride 20 MEQ in Premix Bag 1 BAG IV SCH (07:00)
[2020-06-06] MEDS ORDERED: Potassium Chloride 20 MEQ, Lidocaine 1% 2 ML in Sodium Chloride 0.9% 100 ML IV ONE (08:00)
[2020-06-06] MEDS: Fluticasone-Salmeterol 232-14 MCG Powder Inhalent INH SCH ×2 (08:05→20:42)
[2020-06-06] MEDS: Ondansetron 4 MG/2 ML SDV IV PRN (08:35)
[2020-06-06] MEDS ORDERED: Propofol 200 MG/20 ML SDV ONE (08:45)
[2020-06-06] MEDS ORDERED: Citalopram 20 MG Tab PO SCH (09:00)
[2020-06-06] MEDS ORDERED: Fluticasone-Salmeterol 232-14 MCG Powder Inhalent INH SCH (09:00)
[2020-06-06] MEDS ORDERED: Sodium Chloride 0.9% 10 ML SDV IV SCH (09:30)
[2020-06-06] MEDS ORDERED: Bisacodyl 5 MG Tab PO ONE ×2 (10:00→17:00)
[2020-06-06] MEDS: LORazepam 2 MG/ML SDV IVPUSH PRN ×3 (11:00→21:59)
[2020-06-06] MEDS: Citalopram 10 MG Tab PO SCH (11:13)
[2020-06-06] MEDS: Acetaminophen 325 MG Tab PO PRN ×2 (11:45→16:38)
[2020-06-06] MEDS: Sodium Chloride 0.9% 1,000 ML IV SCH ×2 (12:00→20:44)
[2020-06-06] MEDS: Octreotide 500 MCG in Sodium Chloride 0.9% 497.5 ML IV SCH (12:39)
[2020-06-06] MEDS: Sodium Chloride 0.9% 100 ML with Pantoprazole 80 MG IV SCH ×4 (12:40→22:49)
[2020-06-06] MEDS ORDERED: Polyethylene Glycol 3350 Powder 238 GM Bot PO ONE (14:00)
[2020-06-06] MEDS: Simvastatin 20 MG Tab PO SCH (20:43)
[2020-06-07] MEDS: Octreotide 500 MCG in Sodium Chloride 0.9% 497.5 ML IV SCH (00:06)
[2020-06-07] MEDS: Sodium Chloride 0.9% 1,000 ML IV SCH (04:40)
[2020-06-07] MEDS ORDERED: Potassium Chloride Riders 40 MEQ in Premix Bag 1 BAG IV ONE (06:24)
--- NOTE | 2020-06-07 07:41 | PCM.PN ---
- General Info Date of Service: 06/07/20 Subjective Update: Ms. Edwards has been stable since last night with no further evidence of active bleeding, hemoglobin has been stable over the last few checks. With the colonoscopy prep she has been passing some blood but this appears to be old. EGD was performed yesterday by Dr. Zhou and showed no significant abnormalities, colonoscopy is pending this morning. Functional Status: Reports: Urinating - Review of Systems General: Reports: Weakness, Fatigue. Denies: Fever, Chills Pulmonary: Reports: Shortness of Breath. Denies: Pleuritic Chest Pain, Cough, Sputum, Hemoptysis, Wheezing Cardiovascular: Reports: Dyspnea on Exertion. Denies: Chest Pain, Palpitations, Orthopnea, PND, Edema, Lightheadedness Gastrointestinal: Reports: Hematochezia. Denies: Abdominal Pain, Difficulty Swallowing, Nausea, Vomiting - Patient Data Vitals - Most Recent: Last Vital Signs Temp 98.1 F 06/07/20 04:00 Pulse 68 06/07/20 06:00 Resp 18 06/07/20 06:00 BP 129/55 L 06/07/20 06:00 Pulse Ox 93 L 06/07/20 06:00 Weight - Most Recent: 108 lb 3.951 oz I&O - Last 24 Hours: Intake & Output 06/06/20 06/07/20 06/07/20 22:59 06:59 14:59 Intake Total 3151 2559 Output Total 500 700 Balance 2651 1859 Lab Results Last 24 Hours: Laboratory Results - last 24 hr 06/06/20 06/06/20 06/06/20 Range/Units 11:00 17:12 23:00 WBC (4.5-11.0) K/uL RBC (3.30-5.50) M/uL Hgb 10.6 L 10.2 L 9.5 L (12.0-15.0) g/dL Hct (36.0-48.0) % MCV (80-98) fL MCH (27-31) pg MCHC (32-36) % Plt Count (150-400) K/uL Neut % (Auto) (36-66) % Lymph % (Auto) (24-44) % [place] % (Auto) (2-6) % Eos % (Auto) (2-4) % Baso % (Auto) (0-1) % Sodium (140-148) mmol/L Potassium (3.6-5.2) mmol/L Chloride (100-108) mmol/L Carbon Dioxide (21-32) mmol/L Anion Gap (5.0-14.0) mmol/L BUN (7-18) mg/dL Creatinine (0.6-1.0) mg/dL Est Cr Clr Drug Dosing mL/min Estimated GFR (MDRD) (>60) Glucose (74-106) mg/dL Calcium (8.5-10.1) mg/dL 06/07/20 06/07/20 Range/Units 05:53 05:53 WBC 12.8 H (4.5-11.0) K/uL RBC 3.61 (3.30-5.50) M/uL Hgb 9.7 L (12.0-15.0) g/dL Hct 31.0 L (36.0-48.0) % MCV 86 (80-98) fL MCH 27 (27-31) pg MCHC 31 L (32-36) % Plt Count 227 (150-400) K/uL Neut % (Auto) 84 H (36-66) % Lymph % (Auto) 6 L (24-44) % [place] % (Auto) 10 H (2-6) % Eos % (Auto) 0 L (2-4) % Baso % (Auto) 0 (0-1) % Sodium 144 (140-148) mmol/L Potassium 3.5 L (3.6-5.2) mmol/L Chloride 115 H (100-108) mmol/L Carbon Dioxide 21 (21-32) mmol/L Anion Gap 11.5 (5.0-14.0) mmol/L BUN 18 (7-18) mg/dL Creatinine 0.7 (0.6-1.0) mg/dL Est Cr Clr Drug Dosing 46.37 mL/min Estimated GFR (MDRD) > 60 (>60) Glucose 136 H (74-106) mg/dL Calcium 7.9 L (8.5-10.1) mg/dL Vern Results Last 24 Hours: Microbiology 06/06/20 03:31 Gastric Occult Blood - Final Gastric Fluid 06/06/20 02:45 Stool Occult Blood (VERN) - Final Stool / Feces Med Orders - Current: Current Medications Acetaminophen (Tylenol) 650 mg PO Q4H PRN PRN Reason: Pain (Mild 1-3)/fever Last Admin: 06/06/20 16:38 Dose: 650 mg Documented by: Albuterol (Ventolin Hfa) 0 gm INH Q4H PRN PRN Reason: Shortness of Breath Albuterol/Ipratropium (Duoneb 3.0-0.5 Mg/3 Ml) 3 ml NEB QID PRN PRN Reason: Shortness Of Breath/wheezing Citalopram Hydrobromide (Celexa) 10 mg PO DAILY [facility] Last Admin: 06/06/20 11:13 Dose: 10 mg Documented by: Sodium Chloride (Normal Saline) 1,000 mls @ 125 mls/hr IV ASDIRECTED [facility] Stop: 06/07/20 11:00 Last Admin: 06/07/20 04:40 Dose: 125 mls/hr Documented by: Potassium Chloride 20 meq/Lidocaine HCl 2 ml/ Sodium Chloride 112 mls @ 56 mls/hr IV Q2H [facility] Stop: 06/07/20 11:59 Lorazepam (Ativan) 0.5 mg IVPUSH Q2H PRN PRN Reason: nausea Last Admin: 06/06/20 21:59 Dose: 0.5 mg Documented by: Ondansetron HCl (Zofran) 4 mg IV Q4H PRN PRN Reason: Nausea/Vomiting Last Admin: 06/06/20 08:35 Dose: 4 mg Documented by: Pantoprazole Sodium (Protonix) 40 mg PO DAILY [facility] Fluticasone/Salmeterol (Fluticasone-Salmeterol 232-14 Mcg Powder Inha) 1 puff INH BIDRT [facility] Last Admin: 06/06/20 20:42 Dose: 1 puff Documented by: Simvastatin (Zocor) 20 mg PO BEDTIME [facility] Last Admin: 06/06/20 20:43 Dose: 20 mg Documented by: Sodium Chloride (Saline Flush) 10 ml FLUSH ASDIRECTED PRN PRN Reason: Keep Vein Open Trazodone HCl (Trazodone) 25 mg PO BEDTIME PRN PRN Reason: Insomnia Discontinued Medications Alprazolam (Xanax) 1 mg PO BID PRN PRN Reason: Anxiety Last Admin: 06/06/20 07:50 Dose: 1 mg Documented by: Bisacodyl (Dulcolax) 10 mg PO ONETIME ONE Stop: 06/06/20 10:01 Last Admin: 06/06/20 11:47 Dose: 10 mg Documented by: Bisacodyl (Dulcolax) 10 mg PO ONETIME ONE Stop: 06/06/20 17:01 Last Admin: 06/06/20 18:10 Dose: 10 mg Documented by: Sodium Chloride (Normal Saline) 1,000 mls @ 999 mls/hr IV ASDIRECTED [facility] Last Admin: 06/06/20 03:03 Dose: 999 mls/hr Documented by: Octreotide Acetate 500 mcg/ (Sodium Chloride) 500 mls @ 50 mls/hr IV Q10H [facility] Last Admin: 06/06/20 03:00 Dose: 50 mcg/hr, 50 mls/hr Documented by: Sodium Chloride (Normal Saline) 1,000 mls @ 125 mls/hr IV ASDIRECTED [facility] Last Admin: 06/06/20 04:24 Dose: 125 mls/hr Documented by: Pantoprazole Sodium 80 mg/ (Sodium Chloride) 100 mls @ 10 mls/hr IV .Q10H [facility] Last Admin: 06/06/20 05:57 Dose: 10 mls/hr Documented by: Potassium Chloride 40 meq/ (Premix) 100 mls @ 25 mls/hr IV ONETIME ONE Stop: 06/06/20 08:57 Last Admin: 06/06/20 06:31 Dose: Not Given Documented by: Potassium Chloride 20 meq/ (Premix) 0 mls @ 50 mls/hr IV Q2H [facility] Stop: 06/06/20 10:00 Last Admin: 06/06/20 05:59 Dose: 50 mls/hr Documented by: Potassium Chloride 20 meq/Lidocaine HCl 2 ml/ Sodium Chloride 112 mls @ 56 mls/hr IV ONETIME ONE Stop: 06/06/20 09:59 Last Admin: 06/06/20 08:26 Dose: 56 mls/hr Documented by: Pantoprazole Sodium 80 mg/ (Sodium Chloride) 100 mls @ 10 mls/hr IV .Q10H [facility] Last Admin: 06/06/20 22:49 Dose: 10 mls/hr Documented by: Octreotide Acetate 500 mcg/ (Sodium Chloride) 500 mls @ 50 mls/hr IV Q10H [facility] Last Admin: 06/07/20 00:06 Dose: 50 mcg/hr, 50 mls/hr Documented by: Lidocaine HCl (Xylocaine-Mpf 1%) 5 ml INJECT ONETIME ONE Stop: 06/06/20 05:37 Last Admin: 06/06/20 06:00 Dose: 5 ml Documented by: Lorazepam (Ativan) 1 mg IVPUSH ONETIME ONE Stop: 06/06/20 04:17 Last Admin: 06/06/20 04:24 Dose: 1 mg Documented by: Octreotide Acetate (Sandostatin) 50 mcg IVPUSH ONETIME ONE Stop: 06/06/20 02:49 Last Admin: 06/06/20 03:11 Dose: 50 mcg Documented by: Ondansetron HCl (Zofran) 4 mg IVPUSH ONETIME ONE Stop: 06/06/20 02:51 Last Admin: 06/06/20 03:00 Dose: 4 mg Documented by: Pantoprazole Sodium (Protonix Iv) 40 mg IVPUSH ONETIME ONE Stop: 06/06/20 02:46 Last Admin: 06/06/20 03:11 Dose: 40 mg Documented by: Pantoprazole Sodium (Protonix Iv) 40 mg IVPUSH ONETIME ONE Stop: 06/06/20 04:58 Last Admin: 06/06/20 05:28 Dose: 40 mg Documented by: Polyethylene Glycol (Miralax) 238 gm PO ONETIME ONE Stop: 06/06/20 14:01 Last Admin: 06/06/20 15:25 Dose: 1 bottle Documented by: Prochlorperazine Edisylate (Compazine) 5 mg IVPUSH ONETIME ONE Stop: 06/06/20 03:55 Last Admin: 06/06/20 04:06 Dose: 5 mg Documented by: Propofol (Diprivan 20 Ml) Confirm Administered Dose 200 mg .ROUTE .STK-MED ONE Stop: 06/06/20 08:46 Sodium Chloride (Saline Flush) 10 ml FLUSH ASDIRECTED PRN PRN Reason: Keep Vein Open - Exam Quality Assessment: DVT Prophylaxis General: Alert, Oriented, Cooperative, No Acute Distress Lungs: Clear to Auscultation, Normal Respiratory Effort, Decreased Breath Sounds Cardiovascular: Regular Rate, Regular Rhythm, No Murmurs GI/Abdominal Exam: Soft, Non-Tender, No Organomegaly, No Distention Extremities: Non-Tender, No Pedal Edema Sepsis Event Note - Evaluation Sepsis Screening Result: No Definite Risk - Focused Exam Vital Signs: Vital Signs Temp Pulse Resp BP Pulse Ox 06/07/20 06:00 68 18 129/55 L 93 L 06/07/20 04:00 98.1 F 71 23 H 114/51 L 93 L 06/07/20 02:00 69 22 H 117/51 L 91 L 06/07/20 00:00 98.6 F 72 16 127/46 L 96 06/06/20 22:00 74 20 118/43 L 95 06/06/20 20:00 77 21 H 123/49 L 94 L Date Exam was Performed: 06/07/20 Time Exam was Performed: 07:38 - Problem List Review Problem List Initiated/Reviewed/Updated: Yes - My Orders Last 24 Hours: My Active Orders 06/06/20 07:30 Fluticasone/Salmeterol [Fluticasone-Salmeterol 232-14 MCG Powder Inha] 1 puff INH BIDRT 06/06/20 Breakfast Nothing per Oral Now Diet [DIET] 06/06/20 09:00 Citalopram [Celexa] 10 mg PO DAILY 06/06/20 10:43 LORazepam [Ativan] 0.5 mg IVPUSH Q2H PRN 06/06/20 21:00 Simvastatin [Zocor] 20 mg PO BEDTIME 06/07/20 07:35 Patient Status [ADT] Routine 06/07/20 08:00 Potassium Chloride 20 meq Lidocaine 1% [Xylocaine 1%] 2 ml Sodium Chloride 0.9% [Normal Saline] 100 ml IV Q2H 06/07/20 09:00 Pantoprazole [ProTONIX] 40 mg PO DAILY 06/07/20 11:00 Convert IV to Saline Lock [OM.PC] Routine 06/07/20 17:00 HEMOGLOBIN [HEME] Stat 06/08/20 05:11 HEMOGLOBIN [HEME] AM POTASSIUM,K [CHEM] AM - Plan Plan:: ASSESSMENT AND PLAN ACUTE GI BLEED-hemoglobin stable over the past few checks. EGD performed yesterday by Dr. Zhou was unremarkable, colonoscopy this a.m. -Serial hemoglobin levels -Maintain 2 IV sites -Discontinue Protonix and octreotide IV -N.p.o. -Dr. Zhou to follow-up for colonoscopy this a.m. -Hold aspirin COPD-currently well compensated with no evidence of acute exacerbation or underlying infection -Continue outpatient medications MAINTENANCE ISSUES -DVT prophylaxis; SCUDs -GI prophylaxis; Protonix as above -Row[place] catheter; not indicated -Nutrition; n.p.o. -Nicotine dependence; not required CODE STATUS-FULL CODE ADMISSION STATUS-patient will be admitted to inpatient status, expect at least a 2 night hospital stay for evaluation and management of problems as outlined above. At the time of this admission I do not reasonably expected evaluation and management of this problem will require more than a 96 hour hospital stay. DISPOSITION-anticipate discharge to home after the hospital stay. PRIMARY CARE PROVIDER-Cris Jasmine
[2020-06-07] MEDS ORDERED: Propofol 200 MG/20 ML SDV ONE (08:50)
[2020-06-07] MEDS ORDERED: fentaNYL 100 MCG/2 ML SDV ONE (08:50)
[2020-06-07] MEDS: Potassium Chloride 20 MEQ, Lidocaine 1% 2 ML in Sodium Chloride 0.9% 100 ML IV SCH ×2 (10:30→12:04)
[2020-06-07] MEDS: Fluticasone-Salmeterol 232-14 MCG Powder Inhalent INH SCH ×2 (11:25→20:47)
[2020-06-07] MEDS: Citalopram 10 MG Tab PO SCH (11:31)
[2020-06-07] MEDS: Pantoprazole 40 MG Tab.CR PO SCH (11:32)
[2020-06-07] MEDS: Acetaminophen 325 MG Tab PO PRN ×2 (16:43→20:47)
[2020-06-07] MEDS: Simvastatin 20 MG Tab PO SCH (20:47)
[2020-06-07] MEDS: traZODone 50 MG Tab PO PRN (23:09)
[2020-06-08] MEDS: Calcium Carbonate 500 MG Tab.Chew PO PRN ×2 (05:28→21:25)
[2020-06-08] MEDS: Albuterol 8 GM Inhaler INH PRN ×2 (07:06→21:06)
[2020-06-08] MEDS: Ondansetron 4 MG/2 ML SDV IV PRN ×2 (07:09→12:20)
[2020-06-08] MEDS: Fluticasone-Salmeterol 232-14 MCG Powder Inhalent INH SCH ×2 (07:16→21:09)
[2020-06-08] MEDS: Pantoprazole 40 MG Tab.CR PO SCH (07:19)
[2020-06-08] MEDS: LORazepam 2 MG/ML SDV IVPUSH PRN (08:08)
--- NOTE | 2020-06-08 09:15 | OR ---
DATE OF PROCEDURE: 06/06/2020 SURGEON: Tuan Zhou MD PROCEDURE: EGD. FINDINGS: 1. Normal EGD. 2. No evidence of old blood. COMPLICATIONS: None. MAINTENANCE HELPER: None. ANESTHESIA: MAC. PREOPERATIVE DIAGNOSIS: Gastrointestinal bleed. POSTOPERATIVE DIAGNOSIS: Gastrointestinal bleed. RISKS: Risks, benefits, alternatives, and limitations including, but not limited to infection, bleeding, and perforation were explained to the patient, who wished to proceed. PROCEDURE IN DETAIL: The patient was placed in left lateral decubitus position. The EGD scope was introduced and advanced atraumatically into the second part of the duodenum. No evidence of duodenitis or ulceration. No blood. Within the stomach itself, there was no evidence of gastritis or ulceration. The GE junction was normal without evidence of inflammation or mass. The patient had a small hiatal hernia approximately 2 to 3 cm. The remainder of the esophagus was inspected without abnormality. The patient tolerated the procedure well. Tuan Zhou MD /[id number]
--- NOTE | 2020-06-08 09:21 | OR ---
DATE OF PROCEDURE: 06/07/2020 SURGEON: Tuan Zhou MD PROCEDURE: Colonoscopy. FINDINGS: 1. No evidence of old or new blood. 2. Diverticulosis, mild, without evidence of diverticulitis or bleeding. 3. Very poor colon prep. 4. Asymmetry of the colon without significant mass effect at 40 cm (biopsied x6 and tattooed using Nicole ink). COMPLICATIONS: None. SYSTEMS SUPPORT SPECIALIST: None. PREOPERATIVE DIAGNOSIS: Anemia. POSTOPERATIVE DIAGNOSIS: Anemia. RISKS: Risks, benefits, alternatives, and limitations including but not limited to infection, bleeding, and perforation were explained, and the patient wished to proceed. PROCEDURE IN DETAIL: The patient was placed in left lateral decubitus position. Digital rectal exam was performed, which showed mild internal hemorrhoids. The scope was introduced and advanced atraumatically to the ileocecal valve. Of note, the ileocecal valve was visually occluded with solid stool. Suction and irrigation techniques were attempted to visualize this area along with other areas in the colon. However, the prep was poor. The scope was brought back through the remainder of the colon. At the aforementioned area at 40 cm, there was a large amount of stool type material. Suction and irrigation techniques were used to facilitate optimization of the area, and this was biopsied multiple times using cold biopsy forceps. On retroflexion, no abnormalities were noted. The patient tolerated the procedure well. Tuan Zhou MD /[id number]
[2020-06-08] MEDS: Citalopram 10 MG Tab PO SCH (09:40)
[2020-06-08] MEDS: Albuterol/Ipratropium 3.0-0.5 MG/3 ML Neb Soln NEB SCH ×3 (10:51→21:05)
[2020-06-08] MEDS: Lisinopril 20 MG Tab PO SCH (12:24)
[2020-06-08] MEDS: ALPRAZolam 0.5 MG Tab PO PRN (15:28)
--- NOTE | 2020-06-08 15:31 | PCM.PN ---
- General Info Date of Service: 06/08/20 Subjective Update: There were no acute events overnight. The patient reports this morning that she developed nausea but has not had any vomiting. She does not have any appetite this morning. No complaints of abdominal pain. No hematemesis or hematochezia. She thinks that her left arm is swollen as well as both of her ankles. She did require supplemental oxygen overnight. This morning she is requiring the assist of 1 to get around the room. Functional Status: Reports: Pain Controlled - Review of Systems General: Reports: Weakness Gastrointestinal: Reports: Nausea - Patient Data Vitals - Most Recent: Last Vital Signs Temp 36.9 C 06/08/20 15:18 Pulse 107 H 06/08/20 15:18 Resp 18 06/08/20 15:18 BP 136/59 L 06/08/20 15:18 Pulse Ox 94 L 06/08/20 15:18 Weight - Most Recent: 49.215 kg I&O - Last 24 Hours: Intake & Output 06/08/20 06/08/20 06/08/20 06:59 14:59 22:59 Output Total 300 Balance -300 Lab Results Last 24 Hours: Laboratory Results - last 24 hr 06/07/20 06/08/20 06/08/20 Range/Units 17:00 04:10 04:10 Hgb 10.1 L 11.0 L (12.0-15.0) g/dL Potassium 3.8 (3.6-5.2) mmol/L Med Orders - Current: Current Medications Acetaminophen (Tylenol) 650 mg PO Q4H PRN PRN Reason: Pain (Mild 1-3)/fever Last Admin: 06/07/20 20:47 Dose: 650 mg Documented by: Albuterol (Ventolin Hfa) 0 gm INH Q4H PRN PRN Reason: Shortness of Breath Last Admin: 06/08/20 07:06 Dose: 2 puff Documented by: Albuterol/Ipratropium (Duoneb 3.0-0.5 Mg/3 Ml) 3 ml NEB QIDRT [facility] Last Admin: 06/08/20 14:50 Dose: 3 ml Documented by: Alprazolam (Xanax) 1 mg PO BID PRN PRN Reason: Anxiety Calcium Carbonate/Glycine (Tums) 1,000 mg PO Q2H PRN PRN Reason: Indigestion Last Admin: 06/08/20 05:28 Dose: 1,000 mg Documented by: Citalopram Hydrobromide (Celexa) 10 mg PO DAILY [facility] Last Admin: 06/08/20 09:40 Dose: 10 mg Documented by: Lisinopril (Prinivil) 20 mg PO DAILY [facility] Last Admin: 06/08/20 12:24 Dose: 20 mg Documented by: Lorazepam (Ativan) 0.5 mg IVPUSH Q2H PRN PRN Reason: nausea Last Admin: 06/08/20 08:08 Dose: 0.5 mg Documented by: Ondansetron HCl (Zofran) 4 mg IV Q4H PRN PRN Reason: Nausea/Vomiting Last Admin: 06/08/20 12:20 Dose: 4 mg Documented by: Pantoprazole Sodium (Protonix) 40 mg PO DAILY@0730 [facility] Last Admin: 06/08/20 07:19 Dose: 40 mg Documented by: Fluticasone/Salmeterol (Fluticasone-Salmeterol 232-14 Mcg Powder Inha) 1 puff INH BIDRT [facility] Last Admin: 06/08/20 07:16 Dose: 1 puff Documented by: Simvastatin (Zocor) 20 mg PO BEDTIME [facility] Last Admin: 06/07/20 20:47 Dose: 20 mg Documented by: Sodium Chloride (Saline Flush) 10 ml FLUSH ASDIRECTED PRN PRN Reason: Keep Vein Open Trazodone HCl (Trazodone) 25 mg PO BEDTIME PRN PRN Reason: Insomnia Last Admin: 06/07/20 23:09 Dose: 25 mg Documented by: Discontinued Medications Albuterol/Ipratropium (Duoneb 3.0-0.5 Mg/3 Ml) 3 ml NEB QID PRN PRN Reason: Shortness Of Breath/wheezing Alprazolam (Xanax) 1 mg PO BID PRN PRN Reason: Anxiety Last Admin: 06/06/20 07:50 Dose: 1 mg Documented by: Bisacodyl (Dulcolax) 10 mg PO ONETIME ONE Stop: 06/06/20 10:01 Last Admin: 06/06/20 11:47 Dose: 10 mg Documented by: Bisacodyl (Dulcolax) 10 mg PO ONETIME ONE Stop: 06/06/20 17:01 Last Admin: 06/06/20 18:10 Dose: 10 mg Documented by: Fentanyl (Sublimaze) Confirm Administered Dose 100 mcg .ROUTE .STK-MED ONE Stop: 06/07/20 08:51 Sodium Chloride (Normal Saline) 1,000 mls @ 999 mls/hr IV ASDIRECTED [facility] Last Admin: 06/06/20 03:03 Dose: 999 mls/hr Documented by: Octreotide Acetate 500 mcg/ (Sodium Chloride) 500 mls @ 50 mls/hr IV Q10H [facility] Last Admin: 06/06/20 03:00 Dose: 50 mcg/hr, 50 mls/hr Documented by: Sodium Chloride (Normal Saline) 1,000 mls @ 125 mls/hr IV ASDIRECTED [facility] Last Admin: 06/06/20 04:24 Dose: 125 mls/hr Documented by: Pantoprazole Sodium 80 mg/ (Sodium Chloride) 100 mls @ 10 mls/hr IV .Q10H [facility] Last Admin: 06/06/20 05:57 Dose: 10 mls/hr Documented by: Potassium Chloride 40 meq/ (Premix) 100 mls @ 25 mls/hr IV ONETIME ONE Stop: 06/06/20 08:57 Last Admin: 06/06/20 06:31 Dose: Not Given Documented by: Sodium Chloride (Normal Saline) 1,000 mls @ 125 mls/hr IV ASDIRECTED [facility] Stop: 06/07/20 11:00 Last Admin: 06/07/20 04:40 Dose: 125 mls/hr Documented by: Potassium Chloride 20 meq/ (Premix) 0 mls @ 50 mls/hr IV Q2H [facility] Stop: 06/06/20 10:00 Last Admin: 06/06/20 05:59 Dose: 50 mls/hr Documented by: Potassium Chloride 20 meq/Lidocaine HCl 2 ml/ Sodium Chloride 112 mls @ 56 mls/hr IV ONETIME ONE Stop: 06/06/20 09:59 Last Admin: 06/06/20 08:26 Dose: 56 mls/hr Documented by: Pantoprazole Sodium 80 mg/ (Sodium Chloride) 100 mls @ 10 mls/hr IV .Q10H [facility] Last Admin: 06/06/20 22:49 Dose: 10 mls/hr Documented by: Octreotide Acetate 500 mcg/ (Sodium Chloride) 500 mls @ 50 mls/hr IV Q10H [facility] Last Admin: 06/07/20 00:06 Dose: 50 mcg/hr, 50 mls/hr Documented by: Potassium Chloride 20 meq/Lidocaine HCl 2 ml/ Sodium Chloride 112 mls @ 56 mls/hr IV Q2H [facility] Stop: 06/07/20 11:59 Last Admin: 06/07/20 12:04 Dose: 56 mls/hr Documented by: Lidocaine HCl (Xylocaine-Mpf 1%) 5 ml INJECT ONETIME ONE Stop: 06/06/20 05:37 Last Admin: 06/06/20 06:00 Dose: 5 ml Documented by: Lorazepam (Ativan) 1 mg IVPUSH ONETIME ONE Stop: 06/06/20 04:17 Last Admin: 06/06/20 04:24 Dose: 1 mg Documented by: Octreotide Acetate (Sandostatin) 50 mcg IVPUSH ONETIME ONE Stop: 06/06/20 02:49 Last Admin: 06/06/20 03:11 Dose: 50 mcg Documented by: Ondansetron HCl (Zofran) 4 mg IVPUSH ONETIME ONE Stop: 06/06/20 02:51 Last Admin: 06/06/20 03:00 Dose: 4 mg Documented by: Pantoprazole Sodium (Protonix Iv) 40 mg IVPUSH ONETIME ONE Stop: 06/06/20 02:46 Last Admin: 06/06/20 03:11 Dose: 40 mg Documented by: Pantoprazole Sodium (Protonix Iv) 40 mg IVPUSH ONETIME ONE Stop: 06/06/20 04:58 Last Admin: 06/06/20 05:28 Dose: 40 mg Documented by: Polyethylene Glycol (Miralax) 238 gm PO ONETIME ONE Stop: 06/06/20 14:01 Last Admin: 06/06/20 15:25 Dose: 1 bottle Documented by: Prochlorperazine Edisylate (Compazine) 5 mg IVPUSH ONETIME ONE Stop: 06/06/20 03:55 Last Admin: 06/06/20 04:06 Dose: 5 mg Documented by: Propofol (Diprivan 20 Ml) Confirm Administered Dose 200 mg .ROUTE .STK-MED ONE Stop: 06/06/20 08:46 Propofol (Diprivan 20 Ml) Confirm Administered Dose 200 mg .ROUTE .STK-MED ONE Stop: 06/07/20 08:51 Sodium Chloride (Saline Flush) 10 ml FLUSH ASDIRECTED PRN PRN Reason: Keep Vein Open - Exam Quality Assessment: Supplemental Oxygen General: Alert, Oriented, Cooperative, No Acute Distress Lungs: Clear to Auscultation, Normal Respiratory Effort Cardiovascular: Regular Rate, Regular Rhythm GI/Abdominal Exam: Soft, No Distention Extremities: Pedal Edema (Mild both ankles), Other (Mild swelling of left arm from the elbow distally). No: Increased Warmth Skin: Warm, Dry Psy/Mental Status: Alert, Normal Affect Sepsis Event Note - Evaluation Sepsis Screening Result: No Definite Risk - Focused Exam Vital Signs: Vital Signs Temp Pulse Resp BP BP BP Pulse Ox 06/08/20 15:18 36.9 C 107 H 18 136/59 L 94 L 06/08/20 12:24 136/54 L 06/08/20 10:52 80 06/08/20 10:47 37.1 C 80 18 136/54 L 93 L 06/08/20 07:20 36.6 C 79 18 160/76 H 95 06/08/20 04:00 36.8 C 82 18 153/72 H 94 L Date Exam was Performed: 06/08/20 Time Exam was Performed: 15:27 - Problem List Review Problem List Initiated/Reviewed/Updated: Yes - My Orders Last 24 Hours: My Active Orders 06/08/20 10:07 PT Evaluation and Treatment [CONS] Routine 06/08/20 10:08 ALPRAZolam [Xanax] 1 mg PO BID PRN 06/08/20 10:15 lisinopriL [Prinivil] 20 mg PO DAILY 06/08/20 11:00 Albuterol/Ipratropium [DuoNeb 3.0-0.5 MG/3 ML] 3 ml NEB QIDRT - Plan Plan:: ASSESSMENT AND PLAN ACUTE GI BLEED-hemoglobin stable with no evidence for ongoing bleeding. EGD unremarkable. Colonoscopy with incomplete prep but no obvious source of bleeding. She has some nausea this morning without an obvious cause. -Hemoglobin in the morning -Soft diet -Continue PPI GENERALIZED WEAKNESS-likely secondary to recent acute medical issue. Seems to be slowly improving as the day is going on. -Physical therapy ESSENTIAL HYPERTENSION-blood pressure has started to rise. -Restart lisinopril COPD-currently well compensated with no evidence of acute exacerbation or underlying infection -Continue outpatient medications MAINTENANCE ISSUES -DVT prophylaxis; SCUDs -GI prophylaxis; PPI -Nutrition; soft diet DISPOSITION-anticipate discharge to home after the hospital stay. Epifanio Gutiérrez MD
[2020-06-08] MEDS: Acetaminophen 325 MG Tab PO PRN (18:36)
[2020-06-08] MEDS: Simvastatin 20 MG Tab PO SCH (21:10)
[2020-06-08] MEDS: traZODone 50 MG Tab PO PRN (21:14)
[2020-06-09] MEDS: ALPRAZolam 0.5 MG Tab PO PRN (03:04)
[2020-06-09] MEDS: Albuterol 8 GM Inhaler INH PRN (04:33)
[2020-06-09] MEDS: Fluticasone-Salmeterol 232-14 MCG Powder Inhalent INH SCH (07:28)
[2020-06-09] MEDS: Albuterol/Ipratropium 3.0-0.5 MG/3 ML Neb Soln NEB SCH ×3 (07:28→14:27)
[2020-06-09] MEDS: Pantoprazole 40 MG Tab.CR PO SCH (08:23)
[2020-06-09] MEDS: Lisinopril 20 MG Tab PO SCH (08:27)
[2020-06-09] MEDS: Citalopram 10 MG Tab PO SCH (08:28)
--- NOTE | 2020-06-09 12:31 | PCM.DCSUM1 ---
Discharge Summary - Hospital Course Brief History: 85-year-old female with history of mild COPD and previous hiatal hernia repair who presented with nausea, vomiting, hematemesis and hematochezia. She was admitted to the intensive care unit for management of an acute gastrointestinal hemorrhage. Diagnosis: Stroke: No - Discharge Data Discharge Date: 06/09/20 Discharge Disposition: Home, W Home Health Agency 06 Condition: Good - Referral to Home Health Date of Face to Face Encounter: 06/09/20 Reason for Homebound Status: Acute on chronic weakness after acute gastrointestinal hemorrhage Primary Care Physician: PCP None Skilled Need: Nursing and physical therapy - Discharge Diagnosis/Problem(s) (1) Acute gastrointestinal hemorrhage SNOMED Code(s): 21377354 ICD Code: K92.2 - GASTROINTESTINAL HEMORRHAGE, UNSPECIFIED Status: Acute Current Visit: Yes (2) Anemia due to blood loss, acute SNOMED Code(s): 599335536 ICD Code: D62 - ACUTE POSTHEMORRHAGIC ANEMIA Status: Acute Current Visit: Yes (3) COPD (chronic obstructive pulmonary disease) SNOMED Code(s): 78705801 ICD Code: J44.9 - CHRONIC OBSTRUCTIVE PULMONARY DISEASE, UNSPECIFIED Status : Chronic Current Visit: No Qualifiers: COPD type: unspecified COPD Qualified Code(s): J44.9 - Chronic obstructive pulmonary disease, unspecified - Patient Summary/Data Consults: Consultations 06/06/20 05:26 Consult to Physician [CONS] Routine Consulting Provider: Tuan Zhou Call Completed to Consulting Physician: Yes Reason for Consult: GI Bleed 06/08/20 10:07 PT Evaluation and Treatment [CONS] Routine Please Evaluate and Treat. PT Reason for Consult: Strengthening This query below is only for informational purposes and is not editable. Admission Diagnosis/Problem: Bleeding Hospital Course: Heena presented to the emergency room with nausea vomiting as well as hematemesis and hematochezia. She was admitted to the intensive care unit for management of a presumed gastrointestinal hemorrhage. With the hematemesis there was concern for an upper GI hemorrhage so she did receive an infusion of octreotide as well as pantoprazole. Serial hemoglobin levels were undertaken with a quick drop down to around 10 after her level was initially 12.6. The morning after admission she had an EGD which did not reveal any obvious pathology or source of bleeding. The patient was stable at this point. Her hemoglobin level did drop further throughout the day and was down to 9.5 about 24 hours after admission. Blood pressure and heart rate remained stable. She did undergo a colonoscopy prep the afternoon following admission. The next morning she had a colonoscopy which did not show any obvious source of bleeding though the prep was not optimal. She had some old blood in her colon but this was small in quantity. No fresh appearing blood was noted. Her hemoglobin level remained stable and actually started to rise without any transfusion. Her hemoglobin improved steadily throughout the remainder of the hospital stay and was up to 11 prior to hospital discharge. There has been no evidence for additional bleeding since her arrival to the emergency room. Unfortunately no obvious source of bleeding was identified. I suspect this may have been an upper gastrointestinal source given the hematemesis but no gastric or duodenal pathology was noted based on the examined mucosa with the upper endoscopy. Patient has been stable and doing well since that time. She has been tolerating a regular diet. Her strength is improving with the help of physical therapy. She feels well enough to go home at this time. I believe she is safe for outpatient management at this point. She was interested in home care to help ease her transition home. We did not make any medication changes. She will have early follow-up. - Patient Instructions Diet: GI Soft/Low Residue/Low Fiber Activity: As Tolerated Showering/Bathing: May Shower Notify Provider of: Fever, Nausea and/or Vomiting Other/Special Instructions: 1. You were in the hospital for management of acute gastrointestinal bleeding. We performed an EGD and a colonoscopy but were not able to determine the exact source of your bleeding. The bleeding appears to have stopped and your hemoglobin level has been stable for several days. There has been no evidence for ongoing bleeding. I would recommend that you eat a low residue and low fiber diet to avoid irritating the gastrointestinal tract for the next couple of weeks and then may resume a normal diet after that. No specific treatment is necessary at this time but if you have additional episodes we may need to undertake additional work-up. 2. I have placed a referral to home health care. They will provide nursing and physical therapy services to help ease your transition to home. 3. Continue your usual home medications as previously prescribed. 4. Follow up with your primary care provider in approximately 1 week. - Discharge Plan *PRESCRIPTION DRUG MONITORING PROGRAM REVIEWED*: Not Applicable *COPY OF PRESCRIPTION DRUG MONITORING REPORT IN PATIENT LEONID: Not Applicable Home Medications: Home Meds ALPRAZolam [Xanax] 1 mg PO BID PRN 09/09/14 [History] Acetaminophen [Tylenol Extra Strength] 500 mg PO Q6HR PRN 09/09/14 [History] Budesonide/Formoterol [Symbicort 160-4.5 MCG] 2 puff INH BID 09/09/14 [History] Lisinopril [Zestril] 20 mg PO DAILY 09/09/14 [History] Omeprazole [Prilosec] 40 mg PO DAILY 09/09/14 [History] Simvastatin [Zocor] 20 mg PO BEDTIME 09/09/14 [History] traZODone 25 mg PO BEDTIME PRN 09/09/14 [History] Aspirin [Adult Low Dose Aspirin EC] 81 mg PO DAILY 08/23/17 [History] Albuterol Sulfate [Albuterol Sulfate Hfa] 2 puff INH Q4H PRN 06/06/20 [History] Calcium Carbonate [Calcium] 500 mg PO DAILY 06/06/20 [History] Calcium Carbonate/Vitamin D3 [Calcium 600 + Vit D 400 Softgl] 1 each PO BID 06/06/20 [History] Citalopram [Citalopram HBr] 10 mg PO DAILY 06/06/20 [History] Multivitamin [Multivitamins] 1 tab PO DAILY 06/06/20 [History] [place]-3/DHA/Epa/Fish Oil [[place] 3 500 Softgel] 2 cap PO DAILY 06/06/20 [History] Oxygen Therapy Mode: Room Air Patient Handouts: Gastrointestinal Bleeding Referrals: Cris Jasmine PA [Ordering Only Provider] - 06/16/20 1:30 pm (1 week -follow-up hospital stay for GI bleed. Please recheck hemoglobin on the day of the visit) - Discharge Summary/Plan Comment DC Time >30 min.: Yes (35-setting up home care, discussing meds/diet) - Patient Data Vitals - Most Recent: Last Vital Signs Temp 36.2 C 06/09/20 10:54 Pulse 119 H 06/09/20 10:54 Resp 18 06/09/20 10:54 BP 98/47 L 06/09/20 10:54 Pulse Ox 96 06/09/20 12:00 Weight - Most Recent: 46.539 kg I&O - Last 24 hours: Intake & Output 06/08/20 06/09/20 06/09/20 22:59 06:59 14:59 Intake Total 120 100 120 Balance 120 100 120 Med Orders - Current: Current Medications Acetaminophen (Tylenol) 650 mg PO Q4H PRN PRN Reason: Pain (Mild 1-3)/fever Last Admin: 06/08/20 18:36 Dose: 650 mg Documented by: Albuterol (Ventolin Hfa) 0 gm INH Q4H PRN PRN Reason: Shortness of Breath Last Admin: 06/09/20 04:33 Dose: 2 puff Documented by: Albuterol/Ipratropium (Duoneb 3.0-0.5 Mg/3 Ml) 3 ml NEB QIDRT [facility] Last Admin: 06/09/20 10:31 Dose: 3 ml Documented by: Alprazolam (Xanax) 1 mg PO BID PRN PRN Reason: Anxiety Last Admin: 06/09/20 03:04 Dose: 1 mg Documented by: Calcium Carbonate/Glycine (Tums) 1,000 mg PO Q2H PRN PRN Reason: Indigestion Last Admin: 06/08/20 21:25 Dose: 1,000 mg Documented by: Citalopram Hydrobromide (Celexa) 10 mg PO DAILY [facility] Last Admin: 06/09/20 08:28 Dose: 10 mg Documented by: Lisinopril (Prinivil) 20 mg PO DAILY [facility] Last Admin: 06/09/20 08:27 Dose: 20 mg Documented by: Lorazepam (Ativan) 0.5 mg IVPUSH Q2H PRN PRN Reason: nausea Last Admin: 06/08/20 08:08 Dose: 0.5 mg Documented by: Ondansetron HCl (Zofran) 4 mg IV Q4H PRN PRN Reason: Nausea/Vomiting Last Admin: 06/08/20 12:20 Dose: 4 mg Documented by: Pantoprazole Sodium (Protonix) 40 mg PO DAILY@0730 [facility] Last Admin: 06/09/20 08:23 Dose: 40 mg Documented by: Fluticasone/Salmeterol (Fluticasone-Salmeterol 232-14 Mcg Powder Inha) 1 puff INH BIDRT [facility] Last Admin: 06/09/20 07:28 Dose: 1 puff Documented by: Simvastatin (Zocor) 20 mg PO BEDTIME [facility] Last Admin: 06/08/20 21:10 Dose: 20 mg Documented by: Sodium Chloride (Saline Flush) 10 ml FLUSH ASDIRECTED PRN PRN Reason: Keep Vein Open Trazodone HCl (Trazodone) 25 mg PO BEDTIME PRN PRN Reason: Insomnia Last Admin: 06/08/20 21:14 Dose: 25 mg Documented by: Discontinued Medications Albuterol/Ipratropium (Duoneb 3.0-0.5 Mg/3 Ml) 3 ml NEB QID PRN PRN Reason: Shortness Of Breath/wheezing Alprazolam (Xanax) 1 mg PO BID PRN PRN Reason: Anxiety Last Admin: 06/06/20 07:50 Dose: 1 mg Documented by: Bisacodyl (Dulcolax) 10 mg PO ONETIME ONE Stop: 06/06/20 10:01 Last Admin: 06/06/20 11:47 Dose: 10 mg Documented by: Bisacodyl (Dulcolax) 10 mg PO ONETIME ONE Stop: 06/06/20 17:01 Last Admin: 06/06/20 18:10 Dose: 10 mg Documented by: Fentanyl (Sublimaze) Confirm Administered Dose 100 mcg .ROUTE .STK-MED ONE Stop: 06/07/20 08:51 Sodium Chloride (Normal Saline) 1,000 mls @ 999 mls/hr IV ASDIRECTED [facility] Last Admin: 06/06/20 03:03 Dose: 999 mls/hr Documented by: Octreotide Acetate 500 mcg/ (Sodium Chloride) 500 mls @ 50 mls/hr IV Q10H [facility] Last Admin: 06/06/20 03:00 Dose: 50 mcg/hr, 50 mls/hr Documented by: Sodium Chloride (Normal Saline) 1,000 mls @ 125 mls/hr IV ASDIRECTED [facility] Last Admin: 06/06/20 04:24 Dose: 125 mls/hr Documented by: Pantoprazole Sodium 80 mg/ (Sodium Chloride) 100 mls @ 10 mls/hr IV .Q10H [facility] Last Admin: 06/06/20 05:57 Dose: 10 mls/hr Documented by: Potassium Chloride 40 meq/ (Premix) 100 mls @ 25 mls/hr IV ONETIME ONE Stop: 06/06/20 08:57 Last Admin: 06/06/20 06:31 Dose: Not Given Documented by: Sodium Chloride (Normal Saline) 1,000 mls @ 125 mls/hr IV ASDIRECTED [facility] Stop: 06/07/20 11:00 Last Admin: 06/07/20 04:40 Dose: 125 mls/hr Documented by: Potassium Chloride 20 meq/ (Premix) 0 mls @ 50 mls/hr IV Q2H [facility] Stop: 06/06/20 10:00 Last Admin: 06/06/20 05:59 Dose: 50 mls/hr Documented by: Potassium Chloride 20 meq/Lidocaine HCl 2 ml/ Sodium Chloride 112 mls @ 56 mls/hr IV ONETIME ONE Stop: 06/06/20 09:59 Last Admin: 06/06/20 08:26 Dose: 56 mls/hr Documented by: Pantoprazole Sodium 80 mg/ (Sodium Chloride) 100 mls @ 10 mls/hr IV .Q10H [facility] Last Admin: 06/06/20 22:49 Dose: 10 mls/hr Documented by: Octreotide Acetate 500 mcg/ (Sodium Chloride) 500 mls @ 50 mls/hr IV Q10H [facility] Last Admin: 06/07/20 00:06 Dose: 50 mcg/hr, 50 mls/hr Documented by: Potassium Chloride 20 meq/Lidocaine HCl 2 ml/ Sodium Chloride 112 mls @ 56 mls/ hr IV Q2H [facility] Stop: 06/07/20 11:59 Last Admin: 06/07/20 12:04 Dose: 56 mls/hr Documented by: Lidocaine HCl (Xylocaine-Mpf 1%) 5 ml INJECT ONETIME ONE Stop: 06/06/20 05:37 Last Admin: 06/06/20 06:00 Dose: 5 ml Documented by: Lorazepam (Ativan) 1 mg IVPUSH ONETIME ONE Stop: 06/06/20 04:17 Last Admin: 06/06/20 04:24 Dose: 1 mg Documented by: Octreotide Acetate (Sandostatin) 50 mcg IVPUSH ONETIME ONE Stop: 06/06/20 02:49 Last Admin: 06/06/20 03:11 Dose: 50 mcg Documented by: Ondansetron HCl (Zofran) 4 mg IVPUSH ONETIME ONE Stop: 06/06/20 02:51 Last Admin: 06/06/20 03:00 Dose: 4 mg Documented by: Pantoprazole Sodium (Protonix Iv) 40 mg IVPUSH ONETIME ONE Stop: 06/06/20 02:46 Last Admin: 06/06/20 03:11 Dose: 40 mg Documented by: Pantoprazole Sodium (Protonix Iv) 40 mg IVPUSH ONETIME ONE Stop: 06/06/20 04:58 Last Admin: 06/06/20 05:28 Dose: 40 mg Documented by: Polyethylene Glycol (Miralax) 238 gm PO ONETIME ONE Stop: 06/06/20 14:01 Last Admin: 06/06/20 15:25 Dose: 1 bottle Documented by: Prochlorperazine Edisylate (Compazine) 5 mg IVPUSH ONETIME ONE Stop: 06/06/20 03:55 Last Admin: 06/06/20 04:06 Dose: 5 mg Documented by: Propofol (Diprivan 20 Ml) Confirm Administered Dose 200 mg .ROUTE .STK-MED ONE Stop: 06/06/20 08:46 Propofol (Diprivan 20 Ml) Confirm Administered Dose 200 mg .ROUTE .STK-MED ONE Stop: 06/07/20 08:51 Sodium Chloride (Saline Flush) 10 ml FLUSH ASDIRECTED PRN PRN Reason: Keep Vein Open *Q Meaningful Use (DIS) - VTE *Q VTE Pharmacological Contraindications *Q: Active Hemorrhage
== END 2020-06-09 15:00 | disposition home health service (06) | DRG 378 ==
LOC: JP.ED 02:28 → JP.ICU 05:00 → JP.MS 06-07 10:20
PROVIDERS: ADMIT Hospitalist; ATTEND Internal Medicine
PROC: 0DJ08ZZ Inspection of Upper Intestinal Tract, Via Natural or Artificial Opening Endoscopic (ICD-10-PCS; 2020-06-06)
PROC: 0DJD8ZZ Inspection of Lower Intestinal Tract, Via Natural or Artificial Opening Endoscopic (ICD-10-PCS; principal; 2020-06-07)
DX: K92.2 Gastrointestinal hemorrhage, unspecified (principal); D62 Acute posthemorrhagic anemia; J44.9 Chronic obstructive pulmonary disease, unspecified; H54.7 Unspecified visual loss; I10 Essential (primary) hypertension; K21.9 Gastro-esophageal reflux disease without esophagitis; K44.9 Diaphragmatic hernia without obstruction or gangrene; F41.9 Anxiety disorder, unspecified; F17.200 Nicotine dependence, unspecified, uncomplicated; F17.210 Nicotine dependence, cigarettes, uncomplicated; Z87.440 Personal history of urinary (tract) infections; Z98.890 Other specified postprocedural states; Z79.82 Long term (current) use of aspirin; Z79.899 Other long term (current) drug therapy; Z99.81 Dependence on supplemental oxygen
CPT/HCPCS: 36415; 80053; 82271; 82272; 85025; 85610; 85730; 86850; 86900; 86901; 96365; 96366; 96375; 99285; C9113; J0780; J2060; J2354 ×2; J2405; J7030 ×2; J7040; 80048; 84132; 85018; 94640; 97162-GP; 97530-GP; A9270-GY; J2001; J2704; J3010; J3480; J7050; J7620-GY